=== PATIENT | female | born 1960 | race Caucasian/White ===

== ENCOUNTER → 2017-04-21 | Outpatient (CLI) | payer SELFPAY ==
[~2017-04-21] MED LIST: ALBU3IS INH; ALBU90OI61 INH; AMOX500 PO; AZIT250 PO; AZIT500 PO; Advair Hfa 230-12 GM INH; Aspirin EC81 MG PO; DOXY100 PO; FLUSAL2505 INH; FURO20 PO; Flomax0.4 MG PO; GUAI600T33 PO; GUAIFENESIN1200 MG PO; HYDCHL25 PO; IBUP600; IBUP600 PO; IBUP800 PO; KETO10 PO; LEVSOD100 PO; LEVSOD150 PO; METFORMIN HCL1000 MG PO; PAIN MEDS; POTA10T PO; POTCHL10ER PO; PRED20 PO; TRAM50 PO; Zofran Odt4 MG PO; [UNRECOGNIZED DRUG - REMARK]
[2017-04-21 12:20] LABS: BASOPHILS ABSOLUTE AUTO 0.08 K/mm3 (0.00-0.23); BASOPHILS PERCENT AUTO 1 % (0-2); EOSINOPHILS ABSOLUTE AUTO 0.08 K/mm3 (0.00-0.68); EOSINOPHILS PERCENT AUTO 1 % (0-6); Hematocrit 47.6 % (33.0-51.0); Hemoglobin 15.4 g/dL (11.5-16.0); IMMATURE GRAN ABSOLUTE AUTO 0.04 K/mm3 (0.00-0.10); IMMATURE GRAN PERCENT AUTO 0 % (0-1); LYMPHOCYTES ABSOLUTE AUTO 0.93 K/mm3 (0.84-5.20); LYMPHOCYTES PERCENT AUTO 8 % (21-46); MONOCYTES ABSOLUTE AUTO 0.83 K/mm3 (0.16-1.47); MONOCYTES PERCENT AUTO 7 % (4-13); Mean Corpuscular HGB Conc 32.4 g/dL (31.5-36.5); Mean Corpuscular Volume 102 fL (80-100); Mean Platelet Volume 10.8 fL (9.1-12.4); NEUTROPHILS ABSOLUTE AUTO 9.72 K/mm3 (1.96-9.15); NEUTROPHILS PERCENT AUTO 83 % (41-73); Platelet Count 173 K/mm3 (150-400); RDW Coefficient Variation 14.4 % (11.7-14.2); RDW Standard Deviation 53.9 fL (35.1-46.3); Red Blood Cell Count 4.67 M/mm3 (3.80-5.20); White Blood Cell Count 11.68 K/mm3 (4.00-11.30)
[2017-04-21 12:23] LABS: Anion Gap 6 mmol/L (6-16); Blood Urea Nitrogen 10 mg/dL (8-24); Bun/Creatinine Ratio 12.5 (12.0-20.0); CO2, Blood 34 mmol/L (21-32); Calcium, Blood 8.9 mg/dL (8.5-10.1); Chloride, Blood 106 mmol/L (98-108); Glomerular Filtration Rate >60 (60-); Glucose, Blood 135 mg/dL (70-99); Potassium, Blood 3.5 mmol/L (3.5-5.5); Sodium, Blood 146 mmol/L (136-145)
== END | disposition home or self-care (01) ==
LOC: LAB EV 12:09
PROVIDERS: Physician Assistant Surgical
DX: R05 Cough (principal)
CPT/HCPCS: 80048; 83880; 85025

== ENCOUNTER 2017-08-31 12:14 | Emergency (ER) | payer OTHER ==
[~2017-08-31] VITALS: Ht 167.6 cm; Wt 115.2 kg
[~2017-08-31 12:14] MED LIST changes: -Advair Hfa 230-12 GM INH; -Flomax0.4 MG PO; -IBUP600; -IBUP600 PO; -KETO10 PO; -LEVSOD100 PO; -POTCHL10ER PO; -TRAM50 PO; -Zofran Odt4 MG PO
[2017-08-31] MEDS ORDERED: IBUP600 (14:08)
[2017-08-31] MEDS ORDERED: POTCHL10ER PO (14:09)
[2017-08-31] MEDS ORDERED: FURO20 PO (14:09)
[2017-08-31] MEDS ORDERED: Advair Hfa 230-12 GM INH (14:09)
[2017-08-31] MEDS ORDERED: LEVSOD100 PO (14:10)
[2017-08-31 15:29] LABS: BASOPHILS ABSOLUTE AUTO 0.06 K/mm3 (0.00-0.23); BASOPHILS PERCENT AUTO 1 % (0-2); EOSINOPHILS ABSOLUTE AUTO 0.07 K/mm3 (0.00-0.68); EOSINOPHILS PERCENT AUTO 1 % (0-6); Hematocrit 47.4 % (33.0-51.0); Hemoglobin 14.9 g/dL (11.5-16.0); IMMATURE GRAN ABSOLUTE AUTO 0.05 K/mm3 (0.00-0.10); IMMATURE GRAN PERCENT AUTO 0 % (0-1); LYMPHOCYTES ABSOLUTE AUTO 2.12 K/mm3 (0.84-5.20); LYMPHOCYTES PERCENT AUTO 16 % (21-46); MONOCYTES ABSOLUTE AUTO 1.29 K/mm3 (0.16-1.47); MONOCYTES PERCENT AUTO 10 % (4-13); Mean Corpuscular HGB Conc 31.4 g/dL (31.5-36.5); Mean Corpuscular Volume 102 fL (80-100); Mean Platelet Volume 10.4 fL (9.1-12.4); NEUTROPHILS ABSOLUTE AUTO 9.52 K/mm3 (1.96-9.15); NEUTROPHILS PERCENT AUTO 73 % (41-73); Platelet Count 214 K/mm3 (150-400); RDW Coefficient Variation 14.6 % (11.7-14.2); RDW Standard Deviation 54.6 fL (35.1-46.3); Red Blood Cell Count 4.65 M/mm3 (3.80-5.20); White Blood Cell Count 13.11 K/mm3 (4.00-11.30)
[2017-08-31 15:34] LABS: Source, Urine Clean Catch
[2017-08-31 15:36] LABS: Bilirubin, Urine Neg (Neg); Blood, Urine 5+ (Neg); Glucose Qualitative, Urine Neg (Neg); Ketones, Urine Neg (Neg); Leukocyte Esterase, Urine Neg (Neg); Nitrite, Urine Neg (Neg); Protein, Urine Neg (Neg); Urobilinogen, Urine NORM (Normal)
[2017-08-31 15:46] LABS: Color, Urine Yellow (P-Yellow)
[2017-08-31 15:47] LABS: Appearance, Urine Clear (Clear); Bacteria Few /hpf; Red Blood Cells, Urine TNTC /hpf (0-2); Squamous Epithelial Cells Few /hpf (Few); White Blood Cells, Urine 0-2 /hpf (0-5)
[2017-08-31 15:51] LABS: Alanine Aminotransfer (ALT/SGP 18 U/L (12-78); Albumin, Blood 3.7 g/dL (3.4-5.0); Albumin/Globulin Ratio 0.9 (0.8-1.8); Alk Phos 75 U/L (50-136); Anion Gap 7 mmol/L (6-16); Aspartate Aminotrans (AST/SGOT 20 U/L (12-37); Bilirubin, Total 0.5 mg/dL (0.1-1.0); Blood Urea Nitrogen 10 mg/dL (8-24); Bun/Creatinine Ratio 10.6 (12.0-20.0); CO2, Blood 32 mmol/L (21-32); Calcium, Blood 8.8 mg/dL (8.5-10.1); Chloride, Blood 102 mmol/L (98-108); Creatinine, Blood 0.94 mg/dL (0.40-1.00); Globulin, Blood 4.2 g/dL (2.2-4.0); Glomerular Filtration Rate >60 (60-); Glucose, Blood 88 mg/dL (70-99); Sodium, Blood 141 mmol/L (136-145); Total Protein, Blood 7.9 g/dL (6.4-8.2)
[2017-08-31] MEDS ORDERED: Zofran Odt4 MG PO (16:12)
[2017-08-31] MEDS ORDERED: TRAM50 PO (16:12)
[2017-08-31] MEDS ORDERED: Flomax0.4 MG PO (16:12)
[2017-08-31] MEDS ORDERED: KETO10 PO (16:12)
== END 2017-08-31 16:35 | disposition home or self-care (01) ==
LOC: ER 12:14
PROVIDERS: Emergency Medicine; Physician Assistant
DX: N13.2 Hydronephrosis with renal and ureteral calculous obstruction (principal); Z88.5 Allergy status to narcotic agent; Z88.8 Allergy status to other drugs, medicaments and biological substances; Z79.899 Other long term (current) drug therapy; F17.200 Nicotine dependence, unspecified, uncomplicated
CPT/HCPCS: 36415; 51798; 74176; 80053; 81001; 83690; 85025; 96361; 96374; 99284; J2405; J7030

== ENCOUNTER 2017-08-31 18:31 | Inpatient (IN) | payer OTHER ==
[~2017-08-31] VITALS: Ht 167.6 cm; Wt 124.3 kg
[~2017-08-31 18:31] MED LIST changes: +Advair Hfa 230-12 GM INH; +Flomax0.4 MG PO; +IBUP600; +KETO10 PO; +LEVSOD100 PO; +POTCHL10ER PO; +TRAM50 PO; +Zofran Odt4 MG PO
[2017-08-31 19:54] LABS: BASOPHILS ABSOLUTE AUTO 0.05 K/mm3 (0.00-0.23); BASOPHILS PERCENT AUTO 1 % (0-2); EOSINOPHILS ABSOLUTE AUTO 0.05 K/mm3 (0.00-0.68); EOSINOPHILS PERCENT AUTO 1 % (0-6); Hematocrit 47.1 % (33.0-51.0); Hemoglobin 14.7 g/dL (11.5-16.0); IMMATURE GRAN ABSOLUTE AUTO 0.04 K/mm3 (0.00-0.10); IMMATURE GRAN PERCENT AUTO 0 % (0-1); LYMPHOCYTES ABSOLUTE AUTO 1.79 K/mm3 (0.84-5.20); LYMPHOCYTES PERCENT AUTO 16 % (21-46); MONOCYTES ABSOLUTE AUTO 1.11 K/mm3 (0.16-1.47); MONOCYTES PERCENT AUTO 10 % (4-13); Mean Corpuscular HGB Conc 31.2 g/dL (31.5-36.5); Mean Corpuscular Volume 103 fL (80-100); Mean Platelet Volume 10.5 fL (9.1-12.4); NEUTROPHILS ABSOLUTE AUTO 7.86 K/mm3 (1.96-9.15); NEUTROPHILS PERCENT AUTO 72 % (41-73); Platelet Count 206 K/mm3 (150-400); RDW Coefficient Variation 14.6 % (11.7-14.2); RDW Standard Deviation 55.9 fL (35.1-46.3); Red Blood Cell Count 4.59 M/mm3 (3.80-5.20)
[2017-08-31 20:16] LABS: Alanine Aminotransfer (ALT/SGP 17 U/L (12-78); Albumin, Blood 3.7 g/dL (3.4-5.0); Alk Phos 76 U/L (50-136); Anion Gap 7 mmol/L (6-16); Aspartate Aminotrans (AST/SGOT 22 U/L (12-37); Bilirubin, Total 0.4 mg/dL (0.1-1.0); Blood Urea Nitrogen 9 mg/dL (8-24); CO2, Blood 31 mmol/L (21-32); Calcium, Blood 8.3 mg/dL (8.5-10.1); Chloride, Blood 103 mmol/L (98-108); Globulin, Blood 3.8 g/dL (2.2-4.0); Glomerular Filtration Rate >60 (60-); Glucose, Blood 105 mg/dL (70-99); Sodium, Blood 141 mmol/L (136-145); Total Protein, Blood 7.5 g/dL (6.4-8.2); Troponin I <0.015 ng/mL (0.000-0.040)
[2017-08-31 22:39] LABS: Free Thyroxine 0.21 ng/dL (0.70-1.60)
[2017-08-31 22:41] LABS: Triiodothyronine, Free 0.75 pg/mL (2.18-3.98)
[2017-09-01 04:26] LABS: Hematocrit 46.4 % (33.0-51.0); Hemoglobin 14.2 g/dL (11.5-16.0); Mean Corpuscular HGB 32.1 pg (26.0-34.0); Mean Corpuscular HGB Conc 30.6 g/dL (31.5-36.5); Mean Corpuscular Volume 105 fL (80-100); Mean Platelet Volume 10.5 fL (9.1-12.4); Platelet Count 208 K/mm3 (150-400); RDW Coefficient Variation 14.7 % (11.7-14.2); RDW Standard Deviation 57.7 fL (35.1-46.3); Red Blood Cell Count 4.43 M/mm3 (3.80-5.20); White Blood Cell Count 10.28 K/mm3 (4.00-11.30)
[2017-09-01 04:41] LABS: International Normalized Ratio 1.04; Prothrombin Time Results 10.8 Sec (9.7-11.5)
[2017-09-01 04:43] LABS: Bun/Creatinine Ratio 9.2 (12.0-20.0); Calcium, Blood 8.5 mg/dL (8.5-10.1); Creatinine, Blood 1.3 mg/dL (0.40-1.00); Potassium, Blood 3.9 mmol/L (3.5-5.5)
[2017-09-02 07:13] LABS: COMPLEMENT C3, SERUM 170 mg/dL (82-167); COMPLEMENT C4, SERUM 21 mg/dL (14-44)
[2017-09-03 05:15] LABS: BASOPHILS ABSOLUTE AUTO 0.04 K/mm3 (0.00-0.23); BASOPHILS PERCENT AUTO 0 % (0-2); EOSINOPHILS ABSOLUTE AUTO 0.11 K/mm3 (0.00-0.68); EOSINOPHILS PERCENT AUTO 1 % (0-6); Hematocrit 42.4 % (33.0-51.0); Hemoglobin 12.7 g/dL (11.5-16.0); IMMATURE GRAN ABSOLUTE AUTO 0.03 K/mm3 (0.00-0.10); IMMATURE GRAN PERCENT AUTO 0 % (0-1); LYMPHOCYTES PERCENT AUTO 18 % (21-46); MONOCYTES PERCENT AUTO 11 % (4-13); Mean Corpuscular HGB 31.9 pg (26.0-34.0); Mean Corpuscular Volume 107 fL (80-100); Mean Platelet Volume 10.8 fL (9.1-12.4); NEUTROPHILS ABSOLUTE AUTO 6.32 K/mm3 (1.96-9.15); NEUTROPHILS PERCENT AUTO 70 % (41-73); Platelet Count 169 K/mm3 (150-400); RDW Coefficient Variation 14.7 % (11.7-14.2); RDW Standard Deviation 58.5 fL (35.1-46.3); Red Blood Cell Count 3.98 M/mm3 (3.80-5.20)
[2017-09-03 05:29] LABS: Calcium, Blood 9.1 mg/dL (8.5-10.1); Creatinine, Blood 1.44 mg/dL (0.40-1.00); Potassium, Blood 4.3 mmol/L (3.5-5.5)
[2017-09-03 18:07] LABS: RNP ANTIBODIES <0.2 AI (0.0-0.9); SJOGREN'S ANTI-SS-A <0.2 AI (0.0-0.9); SJOGREN'S ANTI-SS-B <0.2 AI (0.0-0.9); SMITH ANTIBODIES <0.2 AI (0.0-0.9)
[2017-09-03 19:07] LABS: ANTI-DSDNA ANTIBODIES 5 IU/mL (0-9)
[2017-09-04 05:12] LABS: Bun/Creatinine Ratio 16.4 (12.0-20.0); Calcium, Blood 9.2 mg/dL (8.5-10.1); Creatinine, Blood 1.46 mg/dL (0.40-1.00); Potassium, Blood 4.3 mmol/L (3.5-5.5)
[2017-09-05 05:43] LABS: Calcium, Blood 9.7 mg/dL (8.5-10.1); Creatinine, Blood 1.09 mg/dL (0.40-1.00); Potassium, Blood 4.4 mmol/L (3.5-5.5)
== END 2017-09-05 13:38 | disposition home or self-care (01) | DRG 315 ==
LOC: ER 18:31 → PCU 18:32 → MEDS 21:01 → PCU 21:12 → MEDS 22:46 → ENPENDDIS 09-05 10:00 → MEDS 09-05 13:38
PROVIDERS: Emergency Medicine; Internal Medicine; Nurse Practitioner Acute Care; Physician Assistant
DX: I31.3 Pericardial effusion (noninflammatory) (principal); N17.9 Acute kidney failure, unspecified; J96.11 Chronic respiratory failure with hypoxia; J44.9 Chronic obstructive pulmonary disease, unspecified; N20.0 Calculus of kidney
CPT/HCPCS: 36415; 51798; 71046; 74176; 80048; 80053; 81001; 83690; 83880; 84439; 84443; 84481; 84484; 85025; 85027; 85610; 85651; 85730; 86038; 86160; 86225; 86235; 93005; 93010; 93306; 93971; 94640; 94760; 96361; 96374; 99284; 99285; J1650; J2405; J7030

== ENCOUNTER 2017-12-07 18:57 | Emergency (ER) | payer SELFPAY ==
[~2017-12-07] VITALS: Ht 167.6 cm; Wt 113.4 kg
[2017-12-07] MEDS ORDERED: IBUP600 PO (20:00)
== END 2017-12-07 20:07 | disposition home or self-care (01) ==
LOC: ER 18:57
DX: S00.31XA Abrasion of nose, initial encounter (principal); M25.562 Pain in left knee; Z88.5 Allergy status to narcotic agent; Z88.8 Allergy status to other drugs, medicaments and biological substances; Z79.899 Other long term (current) drug therapy; Z79.891 Long term (current) use of opiate analgesic; F17.200 Nicotine dependence, unspecified, uncomplicated; W01.0XXA Fall on same level from slipping, tripping and stumbling without subsequent striking against object, initial encounter
CPT/HCPCS: 73562-LT; 99283-25

== ENCOUNTER 2018-04-04 20:59 | Observation (INO) | payer OTHER ==
[~2018-04-04] VITALS: Ht 167.6 cm; Wt 132.5 kg
[~2018-04-04 20:59] MED LIST changes: +FURO40 PO; +IBUP600 PO
[2018-04-04 21:42] LABS: BASOPHILS ABSOLUTE AUTO 0.04 K/mm3 (0.00-0.23); BASOPHILS PERCENT AUTO 1 % (0-2); EOSINOPHILS ABSOLUTE AUTO 0.06 K/mm3 (0.00-0.68); EOSINOPHILS PERCENT AUTO 1 % (0-6); Hematocrit 46.3 % (33.0-51.0); Hemoglobin 13.4 g/dL (11.5-16.0); IMMATURE GRAN ABSOLUTE AUTO 0.07 K/mm3 (0.00-0.10); IMMATURE GRAN PERCENT AUTO 1 % (0-1); LYMPHOCYTES ABSOLUTE AUTO 2.29 K/mm3 (0.84-5.20); LYMPHOCYTES PERCENT AUTO 30 % (21-46); MONOCYTES ABSOLUTE AUTO 0.57 K/mm3 (0.16-1.47); MONOCYTES PERCENT AUTO 7 % (4-13); Mean Corpuscular HGB 32.4 pg (26.0-34.0); Mean Corpuscular HGB Conc 28.9 g/dL (31.5-36.5); Mean Corpuscular Volume 112 fL (80-100); Mean Platelet Volume 10.2 fL (9.1-12.4); NEUTROPHILS ABSOLUTE AUTO 4.73 K/mm3 (1.96-9.15); NEUTROPHILS PERCENT AUTO 61 % (41-73); Platelet Count 192 K/mm3 (150-400); RDW Coefficient Variation 14.3 % (11.7-14.2); RDW Standard Deviation 60.9 fL (35.1-46.3); Red Blood Cell Count 4.13 M/mm3 (3.80-5.20); White Blood Cell Count 7.76 K/mm3 (4.00-11.30)
[2018-04-04 21:46] LABS: Alanine Aminotransfer (ALT/SGP 28 U/L (12-78); Albumin, Blood 3.6 g/dL (3.4-5.0); Albumin/Globulin Ratio 0.8 (0.8-1.8); Alk Phos 72 U/L (50-136); Anion Gap 5 mmol/L (6-16); Aspartate Aminotrans (AST/SGOT 39 U/L (12-37); Bilirubin, Total 0.2 mg/dL (0.1-1.0); Blood Urea Nitrogen 11 mg/dL (8-24); Bun/Creatinine Ratio 12.6 (12.0-20.0); CO2, Blood 43 mmol/L (21-32); Calcium, Blood 9.2 mg/dL (8.5-10.1); Chloride, Blood 96 mmol/L (98-108); Creatinine, Blood 0.87 mg/dL (0.40-1.00); Globulin, Blood 4.4 g/dL (2.2-4.0); Glomerular Filtration Rate >60 (60-); Glucose, Blood 140 mg/dL (70-99); Potassium, Blood 3.8 mmol/L (3.5-5.5); Sodium, Blood 144 mmol/L (136-145); Troponin I <0.015 ng/mL (0.000-0.040)
[2018-04-04 23:21] LABS: Base Excess Venous 21.3 mmol/L; Bicarbonate Venous 40.9 mmol/L (24.0-30.0); PCO2 Venous 83.5 mmHg (38-42); PO2 Venous 50.7 mmHg (38-42); pH Blood Venous 7.36 (7.34-7.37)
[2018-04-06 06:44] LABS: Blood Urea Nitrogen 19 mg/dL (8-24); Bun/Creatinine Ratio 16.1 (12.0-20.0); Chloride, Blood 88 mmol/L (98-108); Creatinine, Blood 1.18 mg/dL (0.40-1.00); Glomerular Filtration Rate 50 (60-); Glucose, Blood 167 mg/dL (70-99); Potassium, Blood 3.6 mmol/L (3.5-5.5); Sodium, Blood 139 mmol/L (136-145)
[2018-04-06 06:48] LABS: Anion Gap Unable to Calculate mmol/L (6-16)
[2018-04-06 06:50] LABS: CO2, Blood >45 mmol/L (21-32)
== END 2018-04-06 11:12 | disposition home or self-care (01) ==
LOC: ER 20:59 → PCU 21:00 → ER 04-05 02:46 → PCU 04-05 02:46
PROVIDERS: Emergency Medicine; Hospitalist
DX: I31.3 Pericardial effusion (noninflammatory) (principal); J44.9 Chronic obstructive pulmonary disease, unspecified; E03.9 Hypothyroidism, unspecified; E11.9 Type 2 diabetes mellitus without complications; E66.01 Morbid (severe) obesity due to excess calories; F17.210 Nicotine dependence, cigarettes, uncomplicated; Z88.8 Allergy status to other drugs, medicaments and biological substances; Z79.899 Other long term (current) drug therapy; Z99.81 Dependence on supplemental oxygen; Z68.41 Body mass index [BMI] 40.0-44.9, adult; Z23 Encounter for immunization
CPT/HCPCS: 36415; 71045; 71260; 80048; 80053; 82803; 83880; 84443; 84484; 85025; 90686; 93005; 93010; 93308; 93321; 94640; 94760; 96374; 99285-25; J1200; J1940; Q9967

== ENCOUNTER 2019-04-20 20:26 | Inpatient (IN) | payer OTHER ==
[~2019-04-20] VITALS: Ht 167.6 cm; Wt 127.0 kg
[~2019-04-20 20:26] MED LIST changes: -FURO40 PO; -LEVSOD100 PO; -POTCHL10ER PO
[2019-04-20 20:51] LABS: pH Blood Arterial 7.33 (7.35-7.45)
[2019-04-20 20:52] LABS: PCO2 Arterial 87.8 mmHg (35-45); PO2 Arterial 48.7 mmHg (80-100)
[2019-04-20 20:53] LABS: BASOPHILS ABSOLUTE AUTO 0.02 K/mm3 (0.00-0.23); BASOPHILS PERCENT AUTO 0 % (0-2); EOSINOPHILS ABSOLUTE AUTO 0.06 K/mm3 (0.00-0.68); EOSINOPHILS PERCENT AUTO 1 % (0-6); Hematocrit 46.7 % (33.0-51.0); Hemoglobin 13.3 g/dL (11.5-16.0); IMMATURE GRAN ABSOLUTE AUTO 0.04 K/mm3 (0.00-0.10); IMMATURE GRAN PERCENT AUTO 1 % (0-1); LYMPHOCYTES ABSOLUTE AUTO 1.61 K/mm3 (0.84-5.20); LYMPHOCYTES PERCENT AUTO 19 % (21-46); MONOCYTES ABSOLUTE AUTO 0.61 K/mm3 (0.16-1.47); MONOCYTES PERCENT AUTO 7 % (4-13); Mean Corpuscular HGB 31.4 pg (26.0-34.0); Mean Corpuscular HGB Conc 28.5 g/dL (31.5-36.5); Mean Corpuscular Volume 110 fL (80-100); Mean Platelet Volume 9.9 fL (9.1-12.4); NEUTROPHILS ABSOLUTE AUTO 6.33 K/mm3 (1.96-9.15); NEUTROPHILS PERCENT AUTO 73 % (41-73); Platelet Count 177 K/mm3 (150-400); RDW Coefficient Variation 13.5 % (11.7-14.2); RDW Standard Deviation 55.8 fL (35.1-46.3); Red Blood Cell Count 4.24 M/mm3 (3.80-5.20); White Blood Cell Count 8.67 K/mm3 (4.00-11.30)
[2019-04-20 21:17] LABS: Alanine Aminotransfer (ALT/SGP 33 U/L (12-78); Albumin, Blood 3.9 g/dL (3.4-5.0); Albumin/Globulin Ratio 0.9 (0.8-1.8); Alk Phos 84 U/L (50-136); Anion Gap 3 mmol/L (6-16); Aspartate Aminotrans (AST/SGOT 44 U/L (12-37); Bilirubin, Total 0.3 mg/dL (0.1-1.0); Blood Urea Nitrogen 6 mg/dL (8-24); Bun/Creatinine Ratio 6.8 (12.0-20.0); CO2, Blood 43 mmol/L (21-32); Calcium, Blood 9.3 mg/dL (8.5-10.1); Chloride, Blood 93 mmol/L (98-108); Creatinine, Blood 0.88 mg/dL (0.40-1.00); Free Thyroxine 0.19 ng/dL (0.70-1.60); Globulin, Blood 4.3 g/dL (2.2-4.0); Glomerular Filtration Rate >60 (60-); Glucose, Blood 165 mg/dL (70-99); Magnesium, Blood 2.3 mg/dL (1.6-2.4); Sodium, Blood 139 mmol/L (136-145); Total Protein, Blood 8.2 g/dL (6.4-8.2); Troponin I <0.015 ng/mL (0.000-0.040)
[2019-04-20 21:22] LABS: Triiodothyronine, Free <0.50 pg/mL (2.18-3.98)
[2019-04-20 21:36] LABS: Source, Urine Catheter
[2019-04-20 21:38] LABS: Bilirubin, Urine Neg (Neg); Blood, Urine 2+ (Neg); Glucose Qualitative, Urine Neg (Neg); Ketones, Urine Neg (Neg); Leukocyte Esterase, Urine 1+ (Neg); Nitrite, Urine Neg (Neg); Protein, Urine 2+ (Neg); Urobilinogen, Urine NORM (Normal)
[2019-04-20 21:43] LABS: Appearance, Urine Hazy (Clear); Color, Urine Yellow (P-Yellow)
[2019-04-20 21:44] LABS: Amorphous Light (0-Heavy); Bacteria Mod /hpf; Squamous Epithelial Cells Mod /hpf (Few); Trichomonas Few /hpf; White Blood Cells, Urine 25-50 /hpf (0-5)
[2019-04-20] MEDS ORDERED: Synthroid300 MCG PO (21:44)
[2019-04-20] MEDS ORDERED: FURO40 PO (21:45)
[2019-04-20] MEDS ORDERED: POTCHL10ER PO (21:45)
[2019-04-20] MEDS ORDERED: BUPROPION XL150 M1 PO (21:46)
[2019-04-20] MEDS ORDERED: ALBU90OI INH (22:17)
[2019-04-20] MEDS ORDERED: Albuterol S5 MG/1 ML NEB (22:19)
--- NOTE | 2019-04-21 02:29 | NUR ---
PT ARRIVED VIA STRETCHER FROM ER; SLIDER SHEET USED TO TRANSFER PT TO BED; PT A&O; FLAT AFFECT; ANSWERS APPROPRIATELY; JOHNSON IN PLACE DRAINING CLEAR YELLOW; O2 SATS >93 ON 6L OXYMIZER; LUNG SOUNDS EXPIRATORY WHEEZES IN BASES; PT DENIES CHEST PAIN; NSR W/ HR 70'S; PT STATED SHE WAS HUNGRY AND HALF SANDWICH WAS BROUGHT TO PT; DENIES FURTHER NEEDS; CALL LIGHT IN REACH; BED IN LOWEST POSITION.
[2019-04-21 04:42] LABS: Blood Urea Nitrogen 8 mg/dL (8-24); Bun/Creatinine Ratio 8.2 (12.0-20.0); Calcium, Blood 9.3 mg/dL (8.5-10.1); Chloride, Blood 90 mmol/L (98-108); Creatinine, Blood 0.98 mg/dL (0.40-1.00); Glomerular Filtration Rate >60 (60-); Glucose, Blood 220 mg/dL (70-99); Potassium, Blood 3.9 mmol/L (3.5-5.5); Sodium, Blood 137 mmol/L (136-145)
[2019-04-21 04:59] LABS: Anion Gap 3 mmol/L (6-16); CO2, Blood 44 mmol/L (21-32)
--- NOTE | 2019-04-21 05:59 | NUR ---
SHIFT SUMMARY PT SLEEPING IN BED; NO GRIMACE NOTED; VSS; PT ON RA; JOHNSON DRAINING CLEAR YELLOW URINE; CALL LIGHT IN REACH; BED IN LOWEST POSITION; WILL CONTINUE TO MONITOR CLOSELY UNTIL HAND OFF TO DAY SHIFT RN.
[2019-04-21 08:59] LABS: PO2 Arterial 55.5 mmHg (80-100); pH Blood Arterial 7.34 (7.35-7.45)
[2019-04-21 09:00] LABS: PCO2 Arterial 86.1 mmHg (35-45)
--- NOTE | 2019-04-21 10:10 | NUR ---
TRANSFER TO ICU Assumed care of pt upon arrival to ICU 3 from PCU 4 at 0948. Pt transferred to ICU due to increased O2 requirements. Bedside report recieved from FOURDRINIER MACHINE OPERATOR, Martha. Pt remained in same bed during transfer. Pt arrived wearing 15 LPM via nonrebreather. Pt alert and oriented x 4. Speaking in 4-5 word sentences. RR 20-24. No acute distress noted, but pt states "I feel like I can't get enough air". Pt promptly placed on AirVO, at 60 LPM and 95% FiO2. Plan of care discussed with pt, who adamantly states dislike for BiPAP. Dr Lan in to see pt. Plan for precedex drip and then BiPAP placement. Pt agreeable with plan of care. Pt was asked who she would like to make decisions for her if she cannot speak for herself, she stated "My daughter Marina". Pt arrived with one peripheral IV. When this RN assessed right arm to place second peripheral IV, pt states "Not my right arm. That's the side I eat with". This RN educated pt on current illness and liklihood that pt would not be eating today. Pt verbalized understaning.
--- NOTE | 2019-04-21 10:45 | NUR ---
PT ON BIPAP / INITIAL ASSESSMENT Pt placed on BiPAP after precedex started. Pt awake. Provided feedback on BiPAP mask fitting, stating "It's squishing my nose" and pointing to areas where she felt a leak. Mask adjusted to pt satisfaction, until pt stated she was comfortable. SpO2 90% or greater for approximately two minutes after BiPAP mask placed and then lowered to high 70s- low 80s. RR 20-24. Respirations even and unlabored. Pt does not appear in distress and is able to talk to staff with ease. RT in room at this time, adjusting BiPAP settings. Will continue to closely reassess.
--- NOTE | 2019-04-21 11:30 | NUR ---
INTUABTION After approx 20 minutes on BiPAP, FiO2 100%, and IPAP/EPAP titrated by RT, pt SpO2 remained between 79-81%. Dr Lan aware. Plan for intubation. Prior to intubation, pt woken up by this RN and educated on plan of care. Pt nodded head in understanding. 1113 - 50 mg propofol given 1115 - Pt intubated with 8.0 cm ETT, 25 cm MAYCOL 1116 - 50 mg propofol given 1116 - Propofol infusion started at 40 mcg/kg/min, per provider orders. Pt agitated, attempting to reach for ETT. 1117 - NS Bolus started due to hypotension. Pt reamins agitated. 1121 - Precedex on standby. Propofol decreased to 30 mcg/kg/min. Pt pulling on restraints. Plan for central line placement. 1129 - Additional 500 mL bolus of NS to be given. At this time, pt on PC 30/03 Rate 25 FiO2 100%. SpO2 80s. Dr Lan aware.
--- NOTE | 2019-04-21 12:05 | NUR ---
UPDATE Central line placed to right femoral vein by Dr Lan. SpO2 remains in 80s. Plan for chest CT to r/o PE. This RN attempted to call pt's daughter, Fatoumata, to update on pt condition. Unable to reach Fatoumata, plan to reattempt later. At this time, pt BP stable.
[2019-04-21 12:07] LABS: PO2 Arterial 44.8 mmHg (80-100); pH Blood Arterial 7.37 (7.35-7.45)
--- NOTE | 2019-04-21 12:58 | NUR ---
ECHOCARDIOGRAM COMPLETE
--- NOTE | 2019-04-21 13:30 | NUR ---
RETURN FROM CT Pt back to room from CT. While in CT, pt had an epiode of tachycardia per monitor that alarmed as V-Tach. Event resolved without intervention and pt returned to sinus rhythm, rate 70s. Levophed 4 mcg/min, propofol 60 mcg/kg/min.
--- NOTE | 2019-04-21 13:45 | NUR ---
CALL PLACED TO DAUGHTER This RN placed call to pt's daughter Fatoumata Rangel [phone], to update on patient condition. Questions answered.
--- NOTE | 2019-04-21 14:03 | NUR ---
PLAN OF CARE DISCUSSED WITH DR DONAHUE Notified provider that pt has gone to CT and report is available. Also notified provider that pt had event on heart monitor while in CT that alarmed as V-Tach. Provider stated that this was likely artifact or electrical interference.
[2019-04-21 14:31] LABS: BASOPHILS ABSOLUTE AUTO 0.02 K/mm3 (0.00-0.23); BASOPHILS PERCENT AUTO 0 % (0-2); EOSINOPHILS PERCENT AUTO 0 % (0-6); Hematocrit 41.4 % (33.0-51.0); Hemoglobin 12.1 g/dL (11.5-16.0); IMMATURE GRAN ABSOLUTE AUTO 0.04 K/mm3 (0.00-0.10); IMMATURE GRAN PERCENT AUTO 0 % (0-1); LYMPHOCYTES ABSOLUTE AUTO 0.62 K/mm3 (0.84-5.20); LYMPHOCYTES PERCENT AUTO 6 % (21-46); MONOCYTES ABSOLUTE AUTO 0.18 K/mm3 (0.16-1.47); MONOCYTES PERCENT AUTO 2 % (4-13); Mean Corpuscular HGB 31.4 pg (26.0-34.0); Mean Corpuscular HGB Conc 29.2 g/dL (31.5-36.5); Mean Corpuscular Volume 108 fL (80-100); Mean Platelet Volume 10.1 fL (9.1-12.4); NEUTROPHILS ABSOLUTE AUTO 10.22 K/mm3 (1.96-9.15); NEUTROPHILS PERCENT AUTO 92 % (41-73); Platelet Count 209 K/mm3 (150-400); RDW Coefficient Variation 13.5 % (11.7-14.2); RDW Standard Deviation 53.8 fL (35.1-46.3); Red Blood Cell Count 3.85 M/mm3 (3.80-5.20); White Blood Cell Count 11.08 K/mm3 (4.00-11.30)
[2019-04-21 14:52] LABS: Bun/Creatinine Ratio 11.1 (12.0-20.0); Calcium, Blood 8.6 mg/dL (8.5-10.1); Creatinine, Blood 1.08 mg/dL (0.40-1.00); Phosphorus, Blood 2.4 mg/dL (2.5-4.9); Potassium, Blood 4.4 mmol/L (3.5-5.5)
--- NOTE | 2019-04-21 18:18 | NUR ---
SUMMARY At this time, pt is arousable to painful stimulus. Seadated with propofol at 60 mcg/kg/min. Unsuccessful at titrating propofol down due to agitation. Levophed at 5 mcg/min. Pt remains on ventilator via 8.0 cm ETT, 25 cm MAYCOL. Remains on pressure control 20/12. FiO2 90%. At this time, SpO2 is 95%. Lungs clear on ausculation, but dim in lower lobes. Pt has OG tube, clamped as cytomel was given this afternoon. Sinus rhythm per monitor, rate 68. Llanes catheter in place for strict measurement of fluid intake and output. Pt has not had any visitors since arrival to ICU. LR bolus infusing per Dr Lan due to elevated lactic acid.
[2019-04-22 03:26] LABS: BASOPHILS ABSOLUTE AUTO 0.01 K/mm3 (0.00-0.23); BASOPHILS PERCENT AUTO 0 % (0-2); EOSINOPHILS PERCENT AUTO 0 % (0-6); Hemoglobin 12.3 g/dL (11.5-16.0); IMMATURE GRAN ABSOLUTE AUTO 0.13 K/mm3 (0.00-0.10); IMMATURE GRAN PERCENT AUTO 1 % (0-1); LYMPHOCYTES ABSOLUTE AUTO 1.21 K/mm3 (0.84-5.20); LYMPHOCYTES PERCENT AUTO 11 % (21-46); MONOCYTES ABSOLUTE AUTO 0.76 K/mm3 (0.16-1.47); MONOCYTES PERCENT AUTO 7 % (4-13); Mean Corpuscular HGB 31.1 pg (26.0-34.0); Mean Corpuscular HGB Conc 30.8 g/dL (31.5-36.5); Mean Platelet Volume 10.5 fL (9.1-12.4); NEUTROPHILS ABSOLUTE AUTO 8.85 K/mm3 (1.96-9.15); NEUTROPHILS PERCENT AUTO 81 % (41-73); Platelet Count 225 K/mm3 (150-400); RDW Coefficient Variation 13.3 % (11.7-14.2); RDW Standard Deviation 50.3 fL (35.1-46.3); Red Blood Cell Count 3.95 M/mm3 (3.80-5.20); White Blood Cell Count 10.96 K/mm3 (4.00-11.30)
[2019-04-22 03:38] LABS: Mean Corpuscular Volume 101 fL (80-100)
[2019-04-22 03:48] LABS: Albumin, Blood 3.1 g/dL (3.4-5.0); Albumin/Globulin Ratio 0.8 (0.8-1.8); Bilirubin, Total 0.5 mg/dL (0.1-1.0); Bun/Creatinine Ratio 11.4 (12.0-20.0); Calcium, Blood 8.7 mg/dL (8.5-10.1); Creatinine, Blood 1.23 mg/dL (0.40-1.00); Globulin, Blood 3.9 g/dL (2.2-4.0); Magnesium, Blood 1.7 mg/dL (1.6-2.4); Potassium, Blood 3.6 mmol/L (3.5-5.5)
[2019-04-22 03:58] LABS: Phosphorus, Blood 0.8 mg/dL (2.5-4.9)
[2019-04-22 05:19] LABS: PCO2 Arterial 25.4 mmHg (35-45); PO2 Arterial 77.4 mmHg (80-100)
[2019-04-22 05:20] LABS: pH Blood Arterial 7.72 (7.35-7.45)
--- NOTE | 2019-04-22 06:38 | NUR ---
SHIFT SUMMARY PATIENT DID WELL THROUGH NIGHT. UPON RECEIVING MORNING ABG (pH=7.717) DECREASED RATE, PRESSURE SUPPORT ON VENTILATOR. TUBE TAMER WAS CHANGED OUT EARLY IN SHIFT BY RT. ATTEMPTED TO DECREASE SEDATION AROUND 03:00, PATIENT LOOKED PAINFUL, WINCING FACE, COUGHING ON VENTILATOR. INCREASED PROPOFOL BACK TO 60 MCG/KG/MIN, GAVE 50 MCG FENTANYL. THERE WAS MILD INCREASE IN HR & BP, BUT NO INCREASE IN TEMP (MAINTAINED @ 97.4), NO SWELLING, HIVES, ETC. NO BM. BATH COMPLETED. LEVOPHED OFF @ 03:00. VSS. WILL CONTINUE TO MONITOR.
--- NOTE | 2019-04-22 07:30 | NUR ---
BEGINNING OF SHIFT Assumed care of pt at 0700 from Jani LU. Pt on ventilator AC PC //55%. SpO2 99%. Lungs coarse t/o on auscultation, breath sounds not as diminished compared to this RNs assessment yesterday. No sputum aspirated from in-line suction. Pt initially on 60 mcg/kg/min propofol. Levophed off. Pt arousable to painful stimulus. Gag and cough reflexes present. Propofol reduced to 30 mcg/kg/min. After approx 15 minutes, pt awoke while this RN performing catheter care. This RN oriented pt, discussed plan of care and reminded pt that BiPAP was attempted yesterday but unsuccessful at appropriately oxygenating the patient. Pt nodded her head indicating "yes". Pt gripped this RNs fingers when asked to do so. Propofol returned to 60 mcg/kg/min.
--- NOTE | 2019-04-22 08:55 | NUR ---
DR DONAHUE IN TO SEE PT Discussed AM labs. Plan to recheck labs at noon. Provider changed ventilator to volume control AC 15/%. SpO2 97%.
[2019-04-22 12:02] LABS: PCO2 Arterial 46.1 mmHg (35-45); PO2 Arterial 67.1 mmHg (80-100); pH Blood Arterial 7.49 (7.35-7.45)
--- NOTE | 2019-04-22 12:44 | NUR ---
LABS This RN nandini labs from pt's central line at 1200. Results to be called to Dr Lan. This RN placed call to lab to inquire about results as they are not yet available. Gi Tech, Leslie, states specimen has not yet been run, results will soon be available.
[2019-04-22 12:46] LABS: Potassium, Blood 3.3 mmol/L (3.5-5.5)
--- NOTE | 2019-04-22 13:12 | NUR ---
ENDOCRINOLOGY CONSULTATION New orders entered by Dr Dalal. press operator heavy duty placed call to hospitalist, Dr Cannon to inquire if Dr Dalal has been consulted- provider states Dr Dalal has been consulted for endocrinology. This RN placed call to Dr Dalal to notify that pt has already received 100 mcg of levothyroxine today. Inquired if he would like for patient to receive the 200 mcg that is ordered. New orders provided.
--- NOTE | 2019-04-22 16:00 | NUR ---
DR MORRIS IN TO SEE PT Plan of care discussed. No new orders at this time.
--- NOTE | 2019-04-22 16:45 | NUR ---
SUMMARY At this time, pt is laying in bed, sedated. Propofol at 60 mcg/kg/min. Pt did not require any ativan for fentanyl for agitation. Gag and cough present. Pt grimaces with painful stimulus. Pt attempts to reach for ETT when hands not restrained. VSS. Remains on mechanical ventilator via 8.0 cm ETT, 25 cm MAYCOL. AC/VC 12/400/10/35% FiO2. SpO2 95%. Sinus rhythm per monitor. No events per heart monitor this shift. Pt receiving enteral nutrition through OG tube, Vital HP at 20 mL per hour with 30 mL water flush Q4H. Llanes catheter patent and draining clear yellow urine. Pt did not have BM this shift. Pt has not had any visitors this shift, nor has any family called for an update from this RN. Will continue to closely monitor until care handoff and bedside report with oncoming RN.
--- NOTE | 2019-04-22 19:00 | NUR ---
ASSUMED CARE NOTE: ASSUMED CARE OF PT AT 1900, RECEVIED REPORT FROM EMILIA LU. PT TOLERATING VENT WITH SETTINGS AT AC/VC 12/400/10 35%, SPO2 BETWEEN 90-94 %. NO SECRETIONS NOTED WITH INLINE SUCTION. GAG AND COUGH REFLEX PRESENT. ETT IN CORRECT PLACEMENT. PT SEDATED WITH 60MCG/KG/MIN OF PROPOFOL. CENTERAL LINE PATENT AND DRESSING INTACT. PT EYES CRUSTED OVER, WARM WET WASH CLOTH PLACED OVER. PT AFEBRILE. LUNG SOUNDS COARSE T/O. PT IN NSR WITH HR BETWEEN 70-80 BMP. JOHNSON PATENT AND DRAINING YELLOW CLEAR URINE. WILL CONTINUE TO MONITOR PT T/O SHIFT.
--- NOTE | 2019-04-22 23:50 | NUR ---
SEDATION VACATION: PROPOFOL TURNED DOWN GRADUALLY. AT 35MCG/KG/MIN OF PROFOFOL PT ABLE TO RESPOND TO VERBAL STIMULI. PT ABLE TO OPEN EYES AND FOLLOW COMMANDS SUCH MAKE A FIST , WIGGLE TOES, NOD HEAD. PT MOVED HEAD FROM SIDE TO SIDE INDICATING SHE WAS IN NO PAIN. PT REPOSITIONED. PROPOFOL @ 45MCG/KG/MIN.
[2019-04-23 03:46] LABS: BASOPHILS ABSOLUTE AUTO 0.01 K/mm3 (0.00-0.23); BASOPHILS PERCENT AUTO 0 % (0-2); EOSINOPHILS PERCENT AUTO 0 % (0-6); IMMATURE GRAN PERCENT AUTO 2 % (0-1); LYMPHOCYTES ABSOLUTE AUTO 0.98 K/mm3 (0.84-5.20); LYMPHOCYTES PERCENT AUTO 8 % (21-46); MONOCYTES ABSOLUTE AUTO 0.85 K/mm3 (0.16-1.47); MONOCYTES PERCENT AUTO 7 % (4-13); Mean Corpuscular HGB 31.3 pg (26.0-34.0); Mean Corpuscular HGB Conc 31.4 g/dL (31.5-36.5); Mean Corpuscular Volume 99 fL (80-100); Mean Platelet Volume 10.5 fL (9.1-12.4); NEUTROPHILS ABSOLUTE AUTO 10.14 K/mm3 (1.96-9.15); NEUTROPHILS PERCENT AUTO 83 % (41-73); Platelet Count 207 K/mm3 (150-400); RDW Coefficient Variation 14.6 % (11.7-14.2); Red Blood Cell Count 3.52 M/mm3 (3.80-5.20); White Blood Cell Count 12.18 K/mm3 (4.00-11.30)
[2019-04-23 04:09] LABS: Bun/Creatinine Ratio 17.6 (12.0-20.0); Creatinine, Blood 1.19 mg/dL (0.40-1.00); Free Thyroxine 0.64 ng/dL (0.70-1.60); Magnesium, Blood 2.2 mg/dL (1.6-2.4); Phosphorus, Blood 3.9 mg/dL (2.5-4.9); Potassium, Blood 3.5 mmol/L (3.5-5.5)
[2019-04-23 04:13] LABS: Triiodothyronine, Free 1.19 pg/mL (2.18-3.98)
[2019-04-23 05:21] LABS: PCO2 Arterial 45.1 mmHg (35-45); PO2 Arterial 59.3 mmHg (80-100)
--- NOTE | 2019-04-23 05:47 | NUR ---
SHIFT SUMMARY: PT REMAINS ON VENT WITH SETTINGS @ AC/VC 12/400/10/35% WITH SPO2 BETWEEN 92-94%. PROPOFOL WAS TITRATED DOWN TO 35MCG/KG/MIN, TUBING CHANGED.PRN FENTYNAL WAS GIVEN PER EMAR TO AID IN VENT COMPLIANCE. PT IS ABLE TO RESPOND TO PAINFUL AND VERBAL STIMULI. TUBE FEEDING RUNNING AT GOAL OF 20MLS/HR, LAST RESIDUAL 80MLS. JOHNSON CATH PATNET AND DRAINING CLEAR YELLOW URINE. PT REPOSITIONED Q2H, PT GIVEN BEDBATH THIS SHIFT. VSS. SINUS RHYTHYM WITH HR @ [address] WILL CONTINUE TO MONITOR UNTIL REPORT IS GIVEN TO ONCOMING SHIFT.
--- NOTE | 2019-04-23 08:25 | NUR ---
ASSUMED CARE / DR GONZALEZ: REPORT RECEIVED FROM ELLIOT Medeiros RN. ASSUMED CARE OF PT AT APPROX 0700. ON ASSESSMENT, THE PT AWAKES EASILY & IS FOLLOWING COMMANDS W/O DIFFICULTY. SHE IS CALM & COOPERATIVE, NODS "YES" WHEN ASKED OF HAVING PAIN, PRN MEDS PER EMAR. VENT SETTINGS: AC/VC 12/400/10/35%, PT TOLERATING WELL W/ O2 SATS > 92%. LS DIM W/ WHEEZING T/O. MONITOR SHOWS SR W/ HR 70s, BP STABLE. BT x4, JOHNSON PATENT/ DRAINING. SKIN OVERALL INTACT, DRY & FRAGILE. PROVIDER AT BEDSIDE TO EVAL PT. NO CHANGES AT THIS TIME. WILL CONTINUE TO MONITOR
--- NOTE | 2019-04-23 09:30 | NUR ---
DR MOYER: PROVIDER AT BEDSIDE TO EVAL PT. CHANGES TO MED REGIMEN HAVE BEEN MADE. PEEP DECREASED FROM 10 TO 8, ULTIMATE GOAL OF 5 BY END OF DAY IF PT TOLERATES. WILL CONTINUE TO MONITOR & UPDATE NEEDED.
--- NOTE | 2019-04-23 15:01 | NUR ---
TUBE FEEDINGS: RATE INCREASED TO 35 ML/HR PER DIETARY ORDERS.
--- NOTE | 2019-04-23 17:43 | NUR ---
SHIFT SUMMARY: NO ACUTE CHANGES THIS SHIFT. PT REMAINS CALM & COOPERATIVE W/ PROPOFOL FOR SEDATION. NICOLAS, ANSWERS YES/NO QUESTIONS W/ NODS, FOLLOWS COMMANDS. LUNG SOUNDS COARSE & DIM T/O, VENT SETTINGS: AC/VC 12/400/5/35%. MONITOR SHOWS SR W/ HR 70s, BP STABLE. NO BM THIS SHIFT, JOHNSON PATENT/ DRAINING. SKIN CONDITION UNCHANGED. WILL CONTINUE TO MONITOR & UPDATE NEEDED.
--- NOTE | 2019-04-23 21:26 | NUR ---
ASSUMED CARE OF PT, REPORT RCV'D FROM TABITHA DENNISON. PT INTUBATED WITH VENT SETTINGS AC/VC 12/400/5/35%, SEDATED ON PROPOFOL 35 MCG/KG/MIN. PT ALERT TO VERBAL STIMULI, FOLLOWING COMMANDS, NODS HEAD YES/NO IN RESPONSE TO QUESTIONS. LUNG SOUNDS COARSE BILATERAL UPPER WITH EXP WHEEZES, LOWER LOBES DIM. VHP TF RUNNING AT GOAL RATE OF 35 ML/HR WITH 30 ML Q4 H20 FLUSH. 120 ML RESIDUALS REFED. JOHNSON PATENT AND DRAINING CLEAR YELLOW URINE WITH SCANT AMOUNT OF SEDIMENT. BILATERAL SOFT WRIST RESTRAINT TO PREVENT ACCIDENTAL SELF-EXTUBATION. PT FEBRILE WITH TEMP 99.2, ALL OTHER VSS. SEE FULL SHIFT ASSESSMENT.
[2019-04-24 03:35] LABS: BASOPHILS ABSOLUTE AUTO 0.01 K/mm3 (0.00-0.23); BASOPHILS PERCENT AUTO 0 % (0-2); EOSINOPHILS PERCENT AUTO 0 % (0-6); Hematocrit 33.2 % (33.0-51.0); Hemoglobin 10.4 g/dL (11.5-16.0); IMMATURE GRAN PERCENT AUTO 2 % (0-1); LYMPHOCYTES ABSOLUTE AUTO 1.75 K/mm3 (0.84-5.20); LYMPHOCYTES PERCENT AUTO 16 % (21-46); MONOCYTES ABSOLUTE AUTO 0.78 K/mm3 (0.16-1.47); MONOCYTES PERCENT AUTO 7 % (4-13); Mean Corpuscular HGB 31.5 pg (26.0-34.0); Mean Corpuscular HGB Conc 31.3 g/dL (31.5-36.5); Mean Corpuscular Volume 101 fL (80-100); Mean Platelet Volume 10.3 fL (9.1-12.4); NEUTROPHILS ABSOLUTE AUTO 8.38 K/mm3 (1.96-9.15); NEUTROPHILS PERCENT AUTO 75 % (41-73); Platelet Count 194 K/mm3 (150-400); RDW Coefficient Variation 14.7 % (11.7-14.2); RDW Standard Deviation 54.7 fL (35.1-46.3); White Blood Cell Count 11.12 K/mm3 (4.00-11.30)
[2019-04-24 03:50] LABS: Calcium, Blood 8.5 mg/dL (8.5-10.1); Magnesium, Blood 2.4 mg/dL (1.6-2.4); Phosphorus, Blood 2.9 mg/dL (2.5-4.9); Potassium, Blood 3.6 mmol/L (3.5-5.5)
--- NOTE | 2019-04-24 06:39 | NUR ---
SHIFT SUMMARY NO ACUTE CHANGES OVERNIGHT. PT REMAINS SEDATED ON PROPOFOL 40 MCG/KG/MIN. VENT SETTINGS REMAIN THE SAME AC/VC 12/400/5/35%. PT CONTINUES TO BE AROUSABLE AND FOLLOW DIRECTIONS. 1000 ML URINARY OUTPUT THIS SHIFT. VSS. WILL REPORT TO DAYSHIFT NURSE.
[2019-04-24 07:05] LABS: Base Excess Venous 11.7 mmol/L; Bicarbonate Venous 33.6 mmol/L (24.0-30.0); PCO2 Venous 53.6 mmHg (38-42); PO2 Venous 45.2 mmHg (38-42); pH Blood Venous 7.44 (7.34-7.37)
--- NOTE | 2019-04-24 09:20 | NUR ---
PT ASSESSED AT 0715; PT ON PROPOFOL AT 40MCG FOR MECH VENT. PT AWAKENS TO VOICE, FOLLOWS COMMANDS AND NODS HEAD TO QUESTIONS. PROPOFOL PLACED ON STANDBY FOR WEANING TRIAL. PT COMPLETELY AWAKE AT 0800 AND PLACED ON PS 5 WITH PEEP 5, FIO2 35%. PT DID FAIRLY WELL FOR AN HOUR BEFORE BECOMING SOB WITH SATS TRENDING DOWN AND FINALLY DECREASING TO 82%. PT CALM T/O. FIO2 INCREASED TO 50% AND PS TO 10 AT 0900. TF HELD. LUNGS COARSE T/O WITH EXP WHEEZES TO BASES. COPIOUS AMT OF SPUTUM SUCTIONED FROM ETT
--- NOTE | 2019-04-24 09:57 | NUR ---
DR ROGERS IN AT 0900 TO SEE PT. PT PLACED BACK ON PS 5, FIO2 40%. IF PT TOLERATES WELL PT MAY BE EXTUBATED THIS AM. PT AWAKE AND COMFORTABLE W/O COMPLAINTS NOW. VSS
--- NOTE | 2019-04-24 10:39 | NUR ---
PT EXTUBATED AT 1020 TO AIRVO 60L/40% FIO2. COPIOUS AMTS OF SPUTUM NT SUCTIONED FROM NASAL PASSAGES. PT CALM, AWAKE, RESP UNLABORED. PT STATES SHE DOES NOT WANT TO BE EXTUBATED AGAIN EVEN IF IT MEANT THAT SHE WOULD ; WILL PASS ALONG TO DR ROGERS.
--- NOTE | 2019-04-24 11:49 | NUR ---
DR ROGERS IN TO CHECK ON PT. PT AWAKE, DOING WELL. PT WOULD LIKE TO REMAIN FULL CODE; SHE CLARIFIED THAT SHE IS AFRAID AND ANXIOUS ABOUT THE THOUGHT OF BEING INTUBATED WHILE AWAKE. CENTRAL LINE TO BE DC'D AFTER POWERGLIDE PLACED.
--- NOTE | 2019-04-24 15:49 | NUR ---
POWERGLIDE PLACED TO [place], 20G PLACED TO INES. CENTRAL LINE FROM RIGHT GROIN DC'D W/O COMPLICATIONS. PT SAT UP IN CHAIR POSITION. PT TOLERATING ICE CHIPS AND SIPS OF WATER, ADVANCE TO CLEAR LIQUIDS PER DR ROGERS. PT CONT TO COUGH UP COPIOUS AMTS OF THICK YELLOW SPUTUM. VSS. VOICE IS AT A WHISPER D/T WEAKNESS BUT HAS BEEN IMPROVING T/O SHIFT.
--- NOTE | 2019-04-24 20:56 | NUR ---
ASSUMED CARE OF PT, REPORT RCV'D FROM TABITHA BALL. PT ALERT AND ORIENTED SITTING UP IN BED ON AIRVO 60L, 40% FI02 WITH SATS>90%. LUNG SOUNDS COARSE T/O WITH EXPIRATORY WHEEZE. PT HAS COPIOUS AMOUNTS OF THICK YELLOW SPUTUM THAT SHE IS ABLE TO BRING UP AND COUGH INTO TISSUES. PT AFEBRILE, VSS, PT DENIES PAIN OR ADDITIONAL NEEDS AT THIS TIME. SEE FULL SHIFT ASSESSMENT.
[2019-04-25 03:17] LABS: BASOPHILS ABSOLUTE AUTO 0.01 K/mm3 (0.00-0.23); BASOPHILS PERCENT AUTO 0 % (0-2); EOSINOPHILS ABSOLUTE AUTO 0.02 K/mm3 (0.00-0.68); EOSINOPHILS PERCENT AUTO 0 % (0-6); Hematocrit 37.5 % (33.0-51.0); Hemoglobin 11.4 g/dL (11.5-16.0); IMMATURE GRAN ABSOLUTE AUTO 0.19 K/mm3 (0.00-0.10); IMMATURE GRAN PERCENT AUTO 2 % (0-1); LYMPHOCYTES ABSOLUTE AUTO 3.24 K/mm3 (0.84-5.20); LYMPHOCYTES PERCENT AUTO 31 % (21-46); MONOCYTES ABSOLUTE AUTO 0.79 K/mm3 (0.16-1.47); MONOCYTES PERCENT AUTO 8 % (4-13); Mean Corpuscular HGB 31.6 pg (26.0-34.0); Mean Corpuscular HGB Conc 30.4 g/dL (31.5-36.5); Mean Corpuscular Volume 104 fL (80-100); Mean Platelet Volume 9.9 fL (9.1-12.4); NEUTROPHILS ABSOLUTE AUTO 6.15 K/mm3 (1.96-9.15); NEUTROPHILS PERCENT AUTO 59 % (41-73); Platelet Count 179 K/mm3 (150-400); RDW Coefficient Variation 14.7 % (11.7-14.2); RDW Standard Deviation 57.2 fL (35.1-46.3); Red Blood Cell Count 3.61 M/mm3 (3.80-5.20)
[2019-04-25 03:40] LABS: Anion Gap 3 mmol/L (6-16); Blood Urea Nitrogen 24 mg/dL (8-24); Bun/Creatinine Ratio 30.8 (12.0-20.0); CO2, Blood 35 mmol/L (21-32); Calcium, Blood 8.6 mg/dL (8.5-10.1); Chloride, Blood 105 mmol/L (98-108); Creatinine, Blood 0.78 mg/dL (0.40-1.00); Free Thyroxine 0.74 ng/dL (0.70-1.60); Glomerular Filtration Rate >60 (60-); Glucose, Blood 141 mg/dL (70-99); Potassium, Blood 3.4 mmol/L (3.5-5.5); Sodium, Blood 143 mmol/L (136-145)
[2019-04-25 03:43] LABS: Triiodothyronine, Free 2.11 pg/mL (2.18-3.98)
--- NOTE | 2019-04-25 05:53 | NUR ---
SHIFT SUMMARY PT REMAINS ALERT AND ORIENTED. AIRVO SETTINGS REMAIN THE SAME FIO2 40% 60L, ATTEMPTS TO TITRATE FIO2 DOWN RESULTED IN PT SATS<90. LUNG SOUNDS COARSE T/O, PT CONTINUES TO HAVE PRODUCTIVE COUGH WITH COPIOUS AMOUNTS OF THICK SPUTUM. PT EXPRESSED "FEAR OF FALLING ASLEEP", PT STATES SHE DOESN'T WANT TO GO "[place] AND NEED INTUBATED AGAIN". PT REQUIRES MAXIMUM ASSISTANCE WITH REPOSITIONING AND CARE. VSS T/O SHIFT. 700 ML URINARY OUTPUT. WILL REPORT TO DAYSHIFT NURSE.
--- NOTE | 2019-04-25 07:30 | NUR ---
BEGINNING OF SHIFT Assumed care at 0700. Bedside report recieved from Jonel LU. At beginning of shift, pt on AirVO at 60 LPM and FiO2 of 40%. RT Lina in room with both RNs. SpO2 85-87%. Lina stated she would like to on BiPAP. Pt alert. States she feels short of breath, but does not feel light headed or dizzy. Pt speaking in 3-4 word sentences with ease. Call placed to Dr Serna by Jonel LU. Orders received for BiPAP. SpO2 90% or greater currently, with BiPAP settings 14/6 and 35% FiO2. Lungs coarse on auscultation with diminished bases. Pt has loose, productive cough with thick, yellow sputum. Sinus rhythm per heart monitor.
--- NOTE | 2019-04-25 07:51 | NUR ---
BEGINNING OF SHIFT Assumed care of pt at 0700. Bedside report recieved from Jonel LU. Pt on AirVo, 60 LPM, 41% FiO2. SpO2 98%. Lungs clear with diminished bases. Pt alert, oriented. Able to communicate needs. Bed in lowest position. Call light in reach. Pt denies need at this time.
--- NOTE | 2019-04-25 09:00 | NUR ---
DR KEN SKELTON IN TO SEE PATIENT Provider states he would like pt to wear AirVO instead of BiPAP if possible to it is easier for pt to expectorate. Switched pt to AirVO. SpO2 dropped to 85-86%. Dr Serna updated. Pt switched back to BiPAP. Plan for patient to receive more frequent chest CPT.
--- NOTE | 2019-04-25 12:15 | NUR ---
PT UP TO CHAIR Pt up to chair with ceiling lift. Pt taken off BiPAP and placed on AirVO with 60 LPM and 65% FiO2. SpO2 90% or greater. Pt tolerated transfer well.
--- NOTE | 2019-04-25 16:00 | NUR ---
PLAN OF CARE DISCUSSED WITH DR KEN SKELTON Pt has been on AirVO for approx 4 hours. Provider states diet may be advanced for dinner.
--- NOTE | 2019-04-25 18:08 | NUR ---
SUMMARY At beginning of shift, pt was having difficulty maintaining SpO2 90% or greater with AirVO and had to be placed on BiPAP. Pt wore BiPAP at 14/6 and 40% FiO2 from beginning of shift until 1200 with brief breaks, no longer than five minutes. At 1200, pt was taken off BiPAP and placed on AirVO 60 LPM and 60% FiO2, and was able to maintain SpO2 90% or greater while sitting up in chair. Pt has remained in chair since this time. Pt has IS and futter valve and bedside and was educated on use. Pt ate soft ADA diet for dinner and tolerated well. Pt in sinus rhtyhm, no events per monitor. Pt is alert, oriented, able to communicate needs and able to follow commands. Pt requires ceiling lift for mobilizing out of bed. Llanes catheter remains in place for strict measurement of fluid intake and output. Pt has not had a BM this shift. Dr Ovidio Brooks aware the pt has not had BM since 04/20/2019. Will continue to closely monitor until care handoff and bedside report with oncoming RN.
--- NOTE | 2019-04-25 19:00 | NUR ---
ASSUMED CARE NOTE: ASSUMED CARE OF PT @ 1900, RECEVIED REPORT FROM EMILIA LU. PT ALERT AND ORIENTEDX4. PT ON BIPAP WITH SETTINGS @ 14/, FiO2 OF 50%, SPO2 95%, WILL TITRATE FiO2 ORDERED. PT IN NSR WITH HR IN THE 70'S. PT DENIES SOB/CP AT THIS TIME. PT C/O PAIN TO THE RIGHT ANKLE 10/10, PT MEDICATED PER EMAR. JOHNSON PATENT AND DRAINING CLEAR YELLOW URINE. ORAL CARE PROVIDED. WILL CONTINUE TO MONITOR PT T/O SHIFT. BED AT LOWEST LEVEL, CALL LIGHT WITHIN REACH.
--- NOTE | 2019-04-25 22:37 | NUR ---
UPDATE: WHILE PT WAS COUGHING, PT TOOK OFF BIPAP MASK. SPO2 WENT DOWN INTO THE 60% PT BEGAN TO SCREAM "TAKE IT OFF" PT WAS PLACED ON THE AIRVO AND SHE WAS EDUCATED TO CALL AND ASK FOR HELP BEFORE SHE TAKES THE BIPAP/AIRVO OFF. SHE AGREED TO ASK FOR HELP. AFTER PT RECOVERED, SHE WAS GIVEN A BEDBATH. CENTRAL LINE DRESSING CHANGED WELL. WILL CONTINUE TO MONITOR PT T/O SHIFT.
--- NOTE | 2019-04-26 01:42 | NUR ---
UPDATE: PT PLACED ON AIRVO @ 40L WITH FiO2 OF 40%. PT REFUSED TO WEAR BIPAP, DUE TO REOCCURING PRODUCTIVE COUGH. WILL CONTINUE TO MONITOR PT.
[2019-04-26 03:35] LABS: Hematocrit 36.8 % (33.0-51.0); Hemoglobin 10.8 g/dL (11.5-16.0); Mean Corpuscular HGB 31.2 pg (26.0-34.0); Mean Corpuscular HGB Conc 29.3 g/dL (31.5-36.5); Mean Corpuscular Volume 106 fL (80-100); Platelet Count 148 K/mm3 (150-400); RDW Coefficient Variation 14.7 % (11.7-14.2); RDW Standard Deviation 57.7 fL (35.1-46.3); Red Blood Cell Count 3.46 M/mm3 (3.80-5.20); White Blood Cell Count 9.57 K/mm3 (4.00-11.30)
[2019-04-26 03:49] LABS: Anion Gap 2 mmol/L (6-16); Blood Urea Nitrogen 19 mg/dL (8-24); Bun/Creatinine Ratio 27.9 (12.0-20.0); CO2, Blood 37 mmol/L (21-32); Calcium, Blood 8.4 mg/dL (8.5-10.1); Chloride, Blood 104 mmol/L (98-108); Creatinine, Blood 0.68 mg/dL (0.40-1.00); Glomerular Filtration Rate >60 (60-); Glucose, Blood 166 mg/dL (70-99); Potassium, Blood 3.5 mmol/L (3.5-5.5); Sodium, Blood 143 mmol/L (136-145)
[2019-04-26 03:56] LABS: BAND PERCENT MAN 4 % (0-8); BASOPHILS PERCENT MAN 0 % (0-2); EOSINOPHILS ABSOLUTE MAN 0.09 K/mm3 (0.00-0.68); EOSINOPHILS PERCENT MAN 1 % (0-6); LYMPHOCYTES PERCENT MAN 23 % (21-46); METAMYELOCYTE ABSOLUTE MAN 0.09 K/mm3 (0.00-0.00); METAMYELOCYTE PERCENT MAN 1 % (0-0); MONOCYTES ABSOLUTE MAN 0.66 K/mm3 (0.16-1.47); MONOCYTES PERCENT MAN 7 % (4-13); SEG NEUTROPHILS PERCENT MAN 64 % (41-73); TOTAL CELLS COUNTED 100
--- NOTE | 2019-04-26 05:29 | NUR ---
SHIFT SUMMARY: PT REMAINS ON BIPAP WITH SETTINGS @ 12/6, FiO2 45% , SPO2 AT 92-94%. PT WAS ALSO ON AIRVO (60L, FIO2 50%) FOR ABOUT 3HRS THIS SHIFT, PT WAS ABLE TO MAINTAIN SPO2 ABOVE 90%. WHEN PT IS REPOSITIONED, PT BECOMES DYSPNEIC. PT HAD A SHORT RUN OF NSVT, PT DENIED ANY CP. VSS. PT CURRENTLY IN NSR WITH HR IN THE 70'S. JOHNSON PATNET AND DRAINING CLEAR YELLOW URINE. WILL CONTINUE TO MONITOR PT UNTIL REPORT IS GIVEN TO ONCOMING SHIFT. BED AT LOWEST LEVEL, CALL LIGHT WITHIN REACH.
--- NOTE | 2019-04-26 07:30 | NUR ---
BEGINNING OF SHIFT Assumed care at 0700. Bedside report received from Isamar LU. Pt initially on BiPAP 14/6 and 45% FiO2. Pt taken off BiPAP and placed on AirVO. Pt alert, oriented, able to communicate needs and follow commands. Pt placed into chair using ceiling lift. Sinus rhtyhm per monitor. Call light in reach. Pt denies need at this time.
--- NOTE | 2019-04-26 09:15 | NUR ---
DR ROGERS IN TO SEE PT Pt working with physical therapy and occupational therapy. Pt standing up, using FWW and gait belt. Able to take 2-3 steps before returning back to recliner. Pt then swtiched from AirVO to high flow NC at 10 LPM. SpO2 90% or greater.
--- NOTE | 2019-04-26 11:01 | NUR ---
UPDATE Pt on 7 LPM HFNC. SpO2 97%. This RN titrated pt down to 5 LPM HFNC. SpO2 94% at this time. IS and flutter valve at bedside. This RN educate pt on proper usage and indication for each device. Pt demonstrated correct usage.
--- NOTE | 2019-04-26 12:25 | NUR ---
LUNCH Pt assisted to stand from recliner three times by this RN and two other staff. Pt did this activity while on 4 LPM NC. SpO2 remained 90% or greater for this activity. Pt remains sitting up in recliner, feeding self at this time.
--- NOTE | 2019-04-26 15:48 | NUR ---
UPDATE Llanes catheter removed. Pt stood again, using FWW and gait belt. Linens on chair changed. Krystal care performed. This RN spoke to Dr Nolan regarding BiPAP, he stated plan for pt to remain off BiPAP tonight unless she is in respiratory distress.
--- NOTE | 2019-04-26 17:52 | NUR ---
SUMMARY Pt has been up in chair for entire shift. Pt has stood up from chair using FWW and gait belt several times for toileting and linen changes. At this time, pt is on 4 LPM NC. Pt alert and oriented. Sinus rhythm per monitor. No events per monitor. Pt is currently PCU status. Will continue to closely monitor until care handoff and bedside report with oncoming RN.
--- NOTE | 2019-04-26 20:41 | NUR ---
ASSUME CARE PT PRESENTS IN BED, ALERT, CALM, AND COOPERATIVE. LUNGS COARSE WITH DIMINISHED LOWER LOBES. VSS. SATS ABOVE 90%. AFEBRILE. PULSES STRONG THROUGHOUT. PT PLACED ON BEDPAN AT BEGINNIGN OF SHIFT. WILL CONTINUE TO MONITOR.
[2019-04-27 03:44] LABS: Albumin, Blood 2.9 g/dL (3.4-5.0); Anion Gap 4 mmol/L (6-16); Blood Urea Nitrogen 18 mg/dL (8-24); Bun/Creatinine Ratio 30.5 (12.0-20.0); CO2, Blood 36 mmol/L (21-32); Calcium, Blood 8.9 mg/dL (8.5-10.1); Chloride, Blood 103 mmol/L (98-108); Creatinine, Blood 0.59 mg/dL (0.40-1.00); Glomerular Filtration Rate >60 (60-); Glucose, Blood 180 mg/dL (70-99); Phosphorus, Blood 3.8 mg/dL (2.5-4.9); Potassium, Blood 4.1 mmol/L (3.5-5.5); Sodium, Blood 143 mmol/L (136-145)
--- NOTE | 2019-04-27 10:30 | NUR ---
DR. GONZALEZ AT BEDSIDE. NO NEW ORDERS AT THIS TIME.
--- NOTE | 2019-04-27 11:50 | NUR ---
PT AND OT AT BEDSIDE. GOT PT UP TO RECLINER. TACHYCARDIAC AND BUTTS, RECOVERED QUICKLY. TOLERATED WELL.
--- NOTE | 2019-04-27 12:05 | NUR ---
PT SITTING UP IN RECLINER. O2 AT 6 L/MIN NC, COUGH MORE PRODUCTIVE NOW THAT SHE'S SITTING UP. SLIGHTLY SLEEPY. DYSPNEIC ON EXERTION, BUT RECOVERS AFTER RESTING. LUNG SOUNDS COARSE IN UPPER LOBES, DIMINISHED AND FINE CRACKLES IN BILATERAL LL. USING BEDPAN WHILE IN BED, MAY BE ABLE TO USE BSC WHILE OOB. SKIN IS EXTREMELY DRY. DENIES PAIN.
--- NOTE | 2019-04-27 17:09 | NUR ---
PT SITTING IN RECLINER, ALERT AND IN GOOD SPIRITS. HRR AND VSS. ON OXYGEN @ 6 L/MIN NC WITH O2 SATS > 92%. COUGH IS SLIGHTLY MORE PRODUCTIVE, HAS FINE CRACKLES IN BILATERAL BASES. APPETITE IS IMPROVED. VOIDING PER BSC, NO BM YET TODAY.
--- NOTE | 2019-04-27 17:43 | NUR ---
SHIFT SUMMARY: PT TO BE TRANSFERRED TO PCU 16 SHORTLY. GOOD APPETITE. SITTING IN RECLINER. VSS, HRR. LUNG SOUNDS UNCHANGED BUT HAS SLIGHTLY MORE PRODUCTIVE COUGH NOW. DENIES PAIN. ALERT, PLEASANT AND COOPERATIVE. PLAN IS FOR PT TO TRANSFER TO [facility] WHEN MEDICALLY STABLE.
--- NOTE | 2019-04-28 05:08 | NUR ---
Assumed care of patient at 1900, patient awake and alert sitting in recliner. no signs of distress, pt denies pain. She is slow to respond and speak, but alert and oriented. Lung sounds coarse and diminished in bases, 02 saturation at 92% Will continue to monitor.
[2019-04-28 05:43] LABS: Albumin, Blood 3.1 g/dL (3.4-5.0); Anion Gap 3 mmol/L (6-16); Blood Urea Nitrogen 14 mg/dL (8-24); Bun/Creatinine Ratio 24.4 (12.0-20.0); CO2, Blood 39 mmol/L (21-32); Calcium, Blood 9.1 mg/dL (8.5-10.1); Chloride, Blood 96 mmol/L (98-108); Creatinine, Blood 0.57 mg/dL (0.40-1.00); Free Thyroxine 1.11 ng/dL (0.70-1.60); Glomerular Filtration Rate >60 (60-); Glucose, Blood 179 mg/dL (70-99); Phosphorus, Blood 2.7 mg/dL (2.5-4.9); Potassium, Blood 4.1 mmol/L (3.5-5.5); Sodium, Blood 138 mmol/L (136-145)
--- NOTE | 2019-04-28 07:52 | NUR ---
SHIFT SUMMARY PATIENT TRANSFERRED TO BED WITH 2 STAFF ASSIST AT AROUND 2200, SPENT MOST OF THE NIGHT IN BED, AND TRANSFERRED TO RECLINER AT AROUND 0500. SHE NEEDED TO VOID OFTEN, WHICH INTERRUPTED HER SLEEP. USING BEDPAN WHILE IN BED, AND BEDSIDE COMMODE WHEN IN RECLINER, PATIENT WAS INCONTINENT FOR OVER HALF OF THE VOIDS. NO BM THIS SHIFT. PATIENT WAS ABLE TO TRANSFER SLOWLY, BUT WITH MINIMAL TO NO PHYSICAL ASSIST BY END OF SHIFT. PATIENT ASSISTED WITH ELENA-CARE AND TREATMENT TO RASH IN SKIN FOLDS PER EMAR AND UNIT PROTOCOL. VITAL SIGNS STABLE T/O SHIFT. PASSED CARE AND REPORT TO ONCOMING SHIFT AT 0700, PATIENT SLEEPING IN RECLINER, CALL LIGHT W/IN REACH
--- NOTE | 2019-04-28 17:53 | NUR ---
PT HAS BEEN IN RECLINER MOST ALL DAY, DID NOT WANT TO RETURN TO BED. DOING OK, SLEEPS HARD WHEN SHE IS NAPPING. NO FURTHER CHANGES THIS SHIFT. CALL LIGHT IN REACH.
[2019-04-29 05:19] LABS: Albumin, Blood 3.1 g/dL (3.4-5.0); Anion Gap 3 mmol/L (6-16); Blood Urea Nitrogen 17 mg/dL (8-24); Bun/Creatinine Ratio 30.6 (12.0-20.0); CO2, Blood 38 mmol/L (21-32); Calcium, Blood 9.4 mg/dL (8.5-10.1); Chloride, Blood 96 mmol/L (98-108); Creatinine, Blood 0.56 mg/dL (0.40-1.00); Glomerular Filtration Rate >60 (60-); Glucose, Blood 167 mg/dL (70-99); Phosphorus, Blood 3.1 mg/dL (2.5-4.9); Potassium, Blood 4.1 mmol/L (3.5-5.5); Sodium, Blood 137 mmol/L (136-145)
--- NOTE | 2019-04-29 06:08 | NUR ---
SHIFT SUMMARY: PATIENT SLEPT MOST OF SHIFT IN RECLINER, MULTIPLE ASSISTS TO BSC, VSS. PATIENT USING CALL LIGHT APPROPRIATLY, MONITORED CLOSELY.
--- NOTE | 2019-04-29 07:56 | NUR ---
AM NOTE... ASSUMED CARE OF PT APROX 0700. PT IS A&Ox4 AND SBA IN THE ROOM. PT IS ON 4L NC WITH O2 SATS >94%, PT'S HOME O2 IS 2.5 WILL TITRATE PT TOLERATES. PT'S VS STABLE AT THIS TIME. PT HAS EDEMA TO HER BLE. L/S COARSE EXP WHEEZES SCATTERED T/O. PT IS NSR IN THE 80'S PER TEST FIXTURE DESIGNER. CALL LIGHT IN REACH WILL CONTINUE TO MONITOR.
--- NOTE | 2019-04-29 15:41 | NUR ---
PT TRANSFER... PT WAS TRANSFERED TO SURGICAL FLOOR. PT'S VS STABLE AT THIS TIME. PT DENIES CHEST PAIN/PRESSURE N/V OR INCREASED SOB. PT IS ON 3L NC, HER BASELINE IS 2.5. ALL OF PT'S BELONGINS PACKED AND SENT WITH PT.
--- NOTE | 2019-04-29 17:33 | NUR ---
SHIFT SUMMARY PT HAS DONE WELL SINCE ARRIVAL TO UNIT FROM [facility] AT APROX 1330. O2 SAT STABLE ON 3L O2 VIA NC. UP TO CHAIR. SBA W/FWW TO BSC.
--- NOTE | 2019-04-30 07:19 | NUR ---
SHIFT SUMMARY PT RESTED WELL IN CHAIR T/O NIGHT. AAOX4/DROWSY. PT DENIES DISCOMFORT/NAUSEA T/O NIGHT. LUNG SOUNDS EXP WHEEZES T/O NIGHT, MINIMIZED POST BREATHING TX. ON 3L VIA NC T/O NIGHT. UP TO BSC SBA WITH FWW, TOLERATES WELL. NO ACUTE CHANGES OVER NIGHT. PT SITTING UP IN CHAIR AT THIS TIME WATCHING TV WITH CALL LIGHT IN REACH. REPORT TO DAY SHIFT RN.
[2019-04-30 08:50] LABS: Free Thyroxine 1.41 ng/dL (0.70-1.60)
[2019-04-30 08:51] LABS: Triiodothyronine, Free 3.59 pg/mL (2.18-3.98)
[2019-04-30] MEDS ORDERED: ACET325 PO (11:47)
[2019-04-30] MEDS ORDERED: MIRALAX119 GM PO (11:58)
[2019-04-30] MEDS ORDERED: Pedi-Dri 100,0060 GM TOP (11:59)
[2019-04-30] MEDS ORDERED: Humalog100 UNIT/1 SC (12:02)
[2019-04-30] MEDS ORDERED: LIOT5 PO (12:03)
--- NOTE | 2019-04-30 15:36 | NUR ---
DISCHARGE: DC PACKET MADE READY, TRANSPORT HERE AT ABOUT 1530. PT LEFT UNIT VIA WHEELCHAIR WITH 02 AT 1535. REPORT GIVEN TO TABITHA TIPTON AT [facility] AT THIS TIME. FAMILY AWARE OF PT DISCHARGE
== END 2019-04-30 15:32 | DRG 208 ==
LOC: ER 20:26 → PCU 22:42 → ICUE 22:42 → PCU 04-21 01:03 → ICUE 04-21 09:37 → PCU 04-27 18:17 → SURS 04-29 15:50
PROVIDERS: Emergency Medicine; Internal Medicine; Internal Medicine Critical Care Medicine; Internal Medicine Endocrinology, Diabetes & Metabolism; ADMIT Hospitalist
PROC: 06HY33Z Insertion of Infusion Device into Lower Vein, Percutaneous Approach (ICD-10-PCS; principal; 2019-04-21)
PROC: 5A1945Z Respiratory Ventilation, 24-96 Consecutive Hours (ICD-10-PCS; 2019-04-21)
PROC: 0BH17EZ Insertion of Endotracheal Airway into Trachea, Via Natural or Artificial Opening (ICD-10-PCS; 2019-04-21)
PROC: 5A09357 Assistance with Respiratory Ventilation, Less than 24 Consecutive Hours, Continuous Positive Airway Pressure (ICD-10-PCS; 2019-04-21)
DX: J44.1 Chronic obstructive pulmonary disease with (acute) exacerbation (principal); E03.5 Myxedema coma; J96.22 Acute and chronic respiratory failure with hypercapnia; J96.21 Acute and chronic respiratory failure with hypoxia; J18.9 Pneumonia, unspecified organism; Z68.41 Body mass index [BMI] 40.0-44.9, adult; I31.3 Pericardial effusion (noninflammatory); E87.1 Hypo-osmolality and hyponatremia; N17.9 Acute kidney failure, unspecified; Z99.81 Dependence on supplemental oxygen; E03.9 Hypothyroidism, unspecified; E66.01 Morbid (severe) obesity due to excess calories; F17.210 Nicotine dependence, cigarettes, uncomplicated; F32.9 Major depressive disorder, single episode, unspecified; Z91.14 Patient's other noncompliance with medication regimen; G47.33 Obstructive sleep apnea (adult) (pediatric); E83.39 Other disorders of phosphorus metabolism; E83.51 Hypocalcemia; E87.5 Hyperkalemia; R22.0 Localized swelling, mass and lump, head; Z79.4 Long term (current) use of insulin
CPT/HCPCS: 31500; 31720; 36415; 36556; 36600; 51702; 71045; 71260; 80048; 80053; 80069; 81001; 82330; 82533; 82803; 82947; 83605; 83735; 83880; 84100; 84132; 84439; 84443; 84481; 84484; 85025; 87040; 87070; 87076; 87086; 87147; 87205; 90686; 93005; 93010; 93308; 93321; 94002; 94003; 94640; 94644; 94660; 94667; 94668; 94760; 94762; 96374-59; 96375-59; 97110; 97116; 97162; 97167; 97530; 97535; 99285-25; A9270; C1751; C9113; G0008; J0696; J1650; J1720; J1815; J1940; J1956; J2704; J2930; J3010; J3475; J3480; J7030; J7050; J7060; J7120; Q9967

== ENCOUNTER → 2019-07-25 | Outpatient (CLI) | payer OTHER ==
[~2019-07-25] MED LIST changes: +ACET325 PO; +ALBU90OI INH; +Albuterol S5 MG/1 ML NEB; +BUPROPION XL150 M1 PO; +FURO40 PO; +Humalog100 UNIT/1 SC; +LIOT5 PO; +MIRALAX119 GM PO; +POTCHL10ER PO; +Pedi-Dri 100,0060 GM TOP; +Synthroid300 MCG PO
[2019-07-25 15:51] LABS: Alanine Aminotransfer (ALT/SGP 39 U/L (12-78); Albumin, Blood 3.5 g/dL (3.4-5.0); Albumin/Globulin Ratio 0.9 (0.8-1.8); Alk Phos 116 U/L (50-136); Anion Gap 4 mmol/L (6-16); Aspartate Aminotrans (AST/SGOT 24 U/L (12-37); Bilirubin, Total 0.4 mg/dL (0.1-1.0); Blood Urea Nitrogen 14 mg/dL (8-24); Bun/Creatinine Ratio 20.6 (12.0-20.0); CO2, Blood 33 mmol/L (21-32); Calcium, Blood 9.3 mg/dL (8.5-10.1); Chloride, Blood 101 mmol/L (98-108); Creatinine, Blood 0.68 mg/dL (0.40-1.00); Glomerular Filtration Rate >60 (60-); Glucose, Blood 226 mg/dL (70-99); Potassium, Blood 4.2 mmol/L (3.5-5.5); Sodium, Blood 138 mmol/L (136-145); Total Protein, Blood 7.5 g/dL (6.4-8.2)
== END | disposition home or self-care (01) ==
LOC: LAB 14:24 → LAB SHORT 14:24
PROVIDERS: Internal Medicine Endocrinology, Diabetes & Metabolism
DX: E11.65 Type 2 diabetes mellitus with hyperglycemia (principal)
CPT/HCPCS: 80053

== ENCOUNTER → 2020-12-26 | Outpatient (CLI) | payer OTHER ==
[~2020-12-26] MED LIST changes: +AMOCLA875 PO; +ONDA4ODT MM
== END | disposition home or self-care (01) ==
LOC: LAB SHORT 11:21
DX: N30.01 Acute cystitis with hematuria (principal)
CPT/HCPCS: 87077; 87086; 87186

== ENCOUNTER 2022-10-09 19:50 | Emergency (ER) | payer OTHER ==
[~2022-10-09] VITALS: Ht 167.6 cm; Wt 127.0 kg
[~2022-10-09 19:50] MED LIST changes: +HUMALOG100 UNIT/1 SC; -Humalog100 UNIT/1 SC
[2022-10-09 19:58] VITALS: BP 133/69
== END 2022-10-09 20:53 | disposition home or self-care (01) ==
LOC: ER 19:50
DX: S80.01XA Contusion of right knee, initial encounter (principal); W19.XXXA Unspecified fall, initial encounter; Y92.481 Parking lot as the place of occurrence of the external cause; Z88.5 Allergy status to narcotic agent; Z88.8 Allergy status to other drugs, medicaments and biological substances; Z79.4 Long term (current) use of insulin; Z79.890 Hormone replacement therapy; Z79.899 Other long term (current) drug therapy; J44.9 Chronic obstructive pulmonary disease, unspecified; E03.9 Hypothyroidism, unspecified; E11.9 Type 2 diabetes mellitus without complications; F17.210 Nicotine dependence, cigarettes, uncomplicated
CPT/HCPCS: 73562-RT; 99283-25

== ENCOUNTER 2022-10-13 19:49 | Inpatient (IN) | payer OTHER ==
[~2022-10-13] VITALS: Ht 167.6 cm; Wt 130.7 kg
[2022-10-13] MEDS ORDERED: FUROSEMIDE40 MG PO (22:06)
[2022-10-13] MEDS ORDERED: GABAPENTIN600 MG PO (22:07)
[2022-10-13] MEDS ORDERED: IBUP600 PO (22:07)
[2022-10-13 23:31] LABS: Bicarbonate Venous 28.8 mmol/L (24.0-30.0); pH Blood Venous 7.26 (7.34-7.37)
[2022-10-14 02:00] VITALS: BP 137/79
[2022-10-14 02:00] LABS: BASOPHILS ABSOLUTE AUTO 0.05 K/mm3 (0.00-0.23); BASOPHILS PERCENT AUTO 1 % (0-2); EOSINOPHILS ABSOLUTE AUTO 0.05 K/mm3 (0.00-0.68); EOSINOPHILS PERCENT AUTO 1 % (0-6); Hemoglobin 17.1 g/dL (11.5-16.0); IMMATURE GRAN ABSOLUTE AUTO 0.04 K/mm3 (0.00-0.10); IMMATURE GRAN PERCENT AUTO 0 % (0-1); LYMPHOCYTES ABSOLUTE AUTO 2.14 K/mm3 (0.84-5.20); LYMPHOCYTES PERCENT AUTO 19 % (21-46); MONOCYTES PERCENT AUTO 5 % (4-13); Mean Corpuscular HGB 32.4 pg (26.0-34.0); Mean Corpuscular HGB Conc 30.5 g/dL (31.5-36.5); Mean Corpuscular Volume 106 fL (80-100); Mean Platelet Volume 10.4 fL (9.1-12.4); NEUTROPHILS ABSOLUTE AUTO 8.15 K/mm3 (1.96-9.15); NEUTROPHILS PERCENT AUTO 74 % (41-73); Platelet Count 175 K/mm3 (150-400); RDW Coefficient Variation 14.4 % (11.7-14.2); RDW Standard Deviation 57.3 fL (35.1-46.3); Red Blood Cell Count 5.28 M/mm3 (3.80-5.20); White Blood Cell Count 11.03 K/mm3 (4.00-11.30)
[2022-10-14 02:32] LABS: Albumin, Blood 3.4 g/dL (3.4-5.0); Albumin/Globulin Ratio 0.9 (0.8-1.8); Bilirubin, Total 0.4 mg/dL (0.1-1.0); Bun/Creatinine Ratio 13.3 (12.0-20.0); Calcium, Blood 9.5 mg/dL (8.5-10.1); Creatinine, Blood 0.9 mg/dL (0.40-1.00); Globulin, Blood 3.6 g/dL (2.2-4.0)
--- NOTE | 2022-10-14 03:01 | NUR ---
SAFETY & EDUCATION NOTE PT & FAMILY EDUCATED RE: IGNITION SOURCES & RISK OF INJURY WHILE OXYGEN IS IN USE. PT DENIES SMOKING AND PT & FAMILY VERBALIZE UNDERSTANDING.
--- NOTE | 2022-10-14 03:01 | NUR ---
ARRIVAL TO PCU2 PT ARRIVED TO PCU AT APPROXIMATELY 0140. PT SLID OVER FROM ER GURNEY TO HOSPITAL BED BY 4 CLINICAL STAFF MEMEBERS. RT ARRIVED WITH PT, MANAGING BIPAP. PT A&Ox4, COMMUNICATES NEEDS APPROPRIATELY, SBA TO BSC, CONTINENT OF URINE. ORIENTED PT TO CALL LIGHT/UNIT. BP STABLE, SINUS 60's, DENIES CP/PRESSURE. SpO2> 92% ON BIPAP IN AVAPS SETTINGS, DENIES SOB. CALL LIGHT IN REACH, BED IN LOWEST POSITION.
[2022-10-14 03:45] VITALS: BP 131/73
--- NOTE | 2022-10-14 06:13 | NUR ---
SHIFT SUMMARY SEE PREVIOUS NOTE. NO ACUTE CHANGES. BP STABLE, SB-SR 50-70's, DENIES CP/PRESSURE. SpO2> 92% ON BIPAP ON AVAPS SETTINGS WITH 3L BLEED IN OR 5L VIA NC, DENIES SOB. SBA TO BSC. NO OTHER EVENTS, WILL REPORT TO ONCOMING RN.
[2022-10-14 07:23] VITALS: BP 134/78
--- NOTE | 2022-10-14 11:18 | NUR ---
care assumption this rn assumed care at 0700. vital signs stable. patient on bipap with avap settings on 3.5l bleed in. patient transitioned to nasal cannual for morning adls and breakfast. patient on 4l nc. spo2 >90%. patient is alert and oriented x4. perrla. patient uses call light appropriately to make needs knonw. patient is off and on sleeping. patient reports no pain, no chest pain/pressure and patient reports no shortness of breath. see shift assessment for further detials. md rachel in to see patient this am and discussed plan of care. patient is able to get up and use the bedside comode. morning adls done indepdently by patient. plan of care is up to date.
--- NOTE | 2022-10-14 11:21 | NUR ---
safety note this rn assessed and provided education on fire ignition and sources. this rn educated the risks while being on oxygen. patient verbalized understanding, and stated not having any ignition sources.
[2022-10-14 11:50] VITALS: BP 115/72
--- NOTE | 2022-10-14 15:33 | NUR ---
shift summary/transfer note this rn gave report to tresa lemos on medical floor. patient transfering to room 302. patient transfered with all belongings and in no distress. patient said she would notify daughter of moving rooms. no acute changes this shift. plan of care remains up to date.
[2022-10-14 15:38] VITALS: BP 122/52
--- NOTE | 2022-10-14 15:50 | NUR ---
1505 RECEIVED TO ROOM.
--- NOTE | 2022-10-14 17:11 | NUR ---
PT TRANSFERED IN FROM PCU TODAY ABOUT 1500. HAS BEEN PLEASANT AND TALKATIVE. STATES ABLE TO AMBULATE TO BATHROOM TODAY ON O2. DID DESAT TO 88 UPON RETURN TO BED, THEN RECOVERED QUICKLY. PT STATES FEELS MORE IMPROVEMENT TODAY. INTERESTED IF CAN STILL GO ON TRIP TO [place] AND [place] NEXT WEEK. EXPLAINED WILL NOT KNOW FOR SURE AT THIS TIME. EXPLAINED THAT MANY PEOPLE, EVEN IF ON O2, SHOULD BE ABLE TO TRAVEL IF HEALTH IS STABLE. EXPLAINED THAT THIS WILL BE A QUESTION FOR TOMORROW. PT VERBALIZED UNDERSTANDING. BED IN LOW POSITION, CALL LITE IN REACH CALLS APPROP
[2022-10-14 19:19] VITALS: BP 117/66
[2022-10-15 04:10] VITALS: BP 130/67
--- NOTE | 2022-10-15 04:12 | NUR ---
SHIFT SUMMARY NO ACUTE CHANGES NOTED DURING SHIFT. PT ALERT AND ORIENTED, CALLS APPROPRIATELY. PT REMAINS ON 4L, SBA IN ROOM WITH WALKER. NO C/O PAIN NOTED. PENDING ECHO. WILL CONTINUE TO MONITOR. CALL LIGHT WITHIN REACH.
[2022-10-15 06:36] LABS: Bun/Creatinine Ratio 19.5 (12.0-20.0); Calcium, Blood 10.5 mg/dL (8.5-10.1); Creatinine, Blood 0.92 mg/dL (0.40-1.00); Potassium, Blood 3.9 mmol/L (3.5-5.5)
[2022-10-15 07:26] VITALS: BP 115/55
[2022-10-15 09:47] LABS: Hemoglobin 17.8 g/dL (11.5-16.0); Mean Corpuscular HGB 32.2 pg (26.0-34.0); Mean Corpuscular HGB Conc 30.8 g/dL (31.5-36.5); Mean Corpuscular Volume 104 fL (80-100); Mean Platelet Volume 11.7 fL (9.1-12.4); Platelet Count 213 K/mm3 (150-400); RDW Coefficient Variation 14.3 % (11.7-14.2); RDW Standard Deviation 55.7 fL (35.1-46.3); Red Blood Cell Count 5.53 M/mm3 (3.80-5.20); White Blood Cell Count 14.15 K/mm3 (4.00-11.30)
[2022-10-15 09:49] LABS: Hematocrit 57.7 % (33.0-51.0)
--- NOTE | 2022-10-15 13:07 | NUR ---
FAMILY IN VISITING, PATIENT NONCOMPLIANT WITH DM DIET, FAMILY ENCOURAGING HER TO FOLLOW ADA DIET
[2022-10-15 16:26] VITALS: BP 117/54
--- NOTE | 2022-10-15 18:33 | NUR ---
ALERT AND ORIENTED, NONCOMPLIANT WITH SWEETNERS FOR ADA DIET, ENCOURAGE PATIENT NOT TO USE SUGAR, FAMILY VISITED, NO ACUTE CHANGES, 4L O2, CALL LIGHT WITH IN REACH, WILL RELAY TO PM RN
[2022-10-15 19:27] VITALS: BP 120/57
[2022-10-16 04:24] VITALS: BP 136/66
--- NOTE | 2022-10-16 04:26 | NUR ---
SHIFT SUMMARY; NO ACUTE CHANGES OVERNIGHT. THE PT IS AXO X3-4 AND A STANDBY ASSIST TO THE BATHROOM. THE PT HAS BEEN SLEEPING FOR THE MAJORITY OF THE NIGHT. THE PT CURRENTLY HAS 4L NC ON W/ O2 SATS GREATER THAN 92%. THE PT DENIES ANY CHEST PAIN/PRESSURE, SOB OR N/V T/O THE SHIFT. CURRENTLY THE PT IS SLEEPING IN BED WITH THE BED IN THE LOWEST POSITION AND THE CALL LIGHT AT BEDSIDE.
[2022-10-16 06:08] LABS: Albumin, Blood 3.1 g/dL (3.4-5.0); Albumin/Globulin Ratio 0.8 (0.8-1.8); Bilirubin, Total 0.4 mg/dL (0.1-1.0); Bun/Creatinine Ratio 23.5 (12.0-20.0); Calcium, Blood 10.5 mg/dL (8.5-10.1); Creatinine, Blood 0.85 mg/dL (0.40-1.00); Free Thyroxine 0.82 ng/dL (0.70-1.60); Globulin, Blood 3.7 g/dL (2.2-4.0); Magnesium, Blood 2.2 mg/dL (1.6-2.4); Potassium, Blood 4.8 mmol/L (3.5-5.5); Thyroid Stimulating Hormone 15.5 uIU/mL (0.360-4.800); Total Protein, Blood 6.8 g/dL (6.4-8.2); Triiodothyronine, Free 1.41 pg/mL (2.18-3.98)
[2022-10-16 07:39] VITALS: BP 127/53
--- NOTE | 2022-10-16 13:47 | NUR ---
ECHO AT BEDSIDE DONE
--- NOTE | 2022-10-16 18:15 | NUR ---
ALERT AND ORIENTED, INCREASED O2 VIA NC TO 5L, SATS 81% WHILE SLEEPING OR WITH EXERTION, PATIENT HAS A INCREASED TIME TO RECOVER FROM 81%, NEW IV SITE INES, ECHO DONE NO RESULTS IN TO VIEW, VSS, POSSIBLE DISCHARGE TOMORROW, PATIENT WILL NEED HOME OXYGEN EVALUATION PRIOR TO DISCHARGE, CALL LIGHT WITH IN REACH, WILL RELAY TO PM RN
[2022-10-16 19:33] VITALS: BP 137/69
[2022-10-17 02:18] VITALS: BP 150/73
--- NOTE | 2022-10-17 04:20 | NUR ---
SHIFT SUMMARY; NO ACUTE CHANGES OVERNIGHT. THE PT IS AXO X4 AND INDEPENDENT TO THE BSC. THE PT REQUESTED PRN PAIN MEDICATION AT THE BEGINNING OF SHIFT FOR KNEE PAIN BUT HAS SINCE BEEN ABLE TO REST COMFORTABLY. THE PT IS ON 7L NC PRESENTLY SATING 90-93% T/O THE NIGHT. THE PT DENIES ANY SOB OR CHEST PAIN/PRESSURE. CURRENTLY THE PT IS RESTING IN BED WITH THE BED IN THE LOWEST POSITION AND THE CALL LIGHT AT BEDSIDE. FIRE SAFETY MAINTAINED T/O THE SHIFT.
[2022-10-17 04:52] LABS: Hematocrit 54.9 % (33.0-51.0); Hemoglobin 17.7 g/dL (11.5-16.0); Mean Corpuscular HGB 32.2 pg (26.0-34.0); Mean Corpuscular HGB Conc 32.2 g/dL (31.5-36.5); Mean Corpuscular Volume 100 fL (80-100); Mean Platelet Volume 10.6 fL (9.1-12.4); Platelet Count 204 K/mm3 (150-400); RDW Coefficient Variation 14.3 % (11.7-14.2); RDW Standard Deviation 53.1 fL (35.1-46.3); White Blood Cell Count 10.18 K/mm3 (4.00-11.30)
[2022-10-17 05:17] LABS: Albumin, Blood 3.3 g/dL (3.4-5.0); Albumin/Globulin Ratio 0.9 (0.8-1.8); Bilirubin, Total 0.6 mg/dL (0.1-1.0); Bun/Creatinine Ratio 29.7 (12.0-20.0); Calcium, Blood 10.9 mg/dL (8.5-10.1); Creatinine, Blood 0.77 mg/dL (0.40-1.00); Globulin, Blood 3.6 g/dL (2.2-4.0); Magnesium, Blood 2.3 mg/dL (1.6-2.4); Total Protein, Blood 6.9 g/dL (6.4-8.2)
--- NOTE | 2022-10-17 10:36 | NUR ---
DR LIVE ROUNDED, PATIENT ON HIGH FLOW OXYGEN AT 5L PRESENTLY, SATS STAYING 90% AND MORE, PLEASANT TO CARE, FLUID RESTRICTION STARTED, POSSIBLE CPAP TONIGHT, ALERT AND ORIENTED, CALL LIGHT WITH IN REACH
[2022-10-17 15:40] VITALS: BP 142/66
--- NOTE | 2022-10-17 18:32 | NUR ---
PLEASANT TO ALL CARE, CALL LIGHT WITH IN REACH, MAKES NEEDS KNOWN, 4L HIGHFLOW OXYGEN SATS 95%, NO DESATS FROM EXERCTION WITH THE 4L HIGH FLOW, RT RECOMMENDED JUST THE HIGH FLOW FOR THE NIGHT AND NO NEED FOR CPAP, NO ACUTE CHANGES, WILL RELAY TO PM RN
[2022-10-17 20:03] VITALS: BP 132/67
[2022-10-18 04:49] VITALS: BP 138/98
[2022-10-18 05:09] LABS: Hematocrit 54.2 % (33.0-51.0); Hemoglobin 17.3 g/dL (11.5-16.0); Mean Corpuscular HGB 31.7 pg (26.0-34.0); Mean Corpuscular HGB Conc 31.9 g/dL (31.5-36.5); Mean Corpuscular Volume 99 fL (80-100); Mean Platelet Volume 10.6 fL (9.1-12.4); Platelet Count 223 K/mm3 (150-400); RDW Coefficient Variation 14.2 % (11.7-14.2); RDW Standard Deviation 52.4 fL (35.1-46.3); Red Blood Cell Count 5.45 M/mm3 (3.80-5.20)
--- NOTE | 2022-10-18 05:21 | NUR ---
SHIFT SUMMARY; NO ACUTE CHANGES OVERNIGHT. THE PT IS AXO X4 AND INDEPENDENT IN THE ROOM. THE PT IS ON 4L HFNC WITH O2 SATS 93-95% T/O THE NIGHT. THE PT WAS MEDICATED ONCE FOR KNEE PAIN W/ GOOD RELIEF. THE PT DENIES ANY SOB, CHEST PAIN/PRESSURE OR N/V THIS SHIFT. CURRRENTLY THE PT IS SLEEPING IN BED WITH THE BED IN THE LOWEST POSITION AND THE CALL LIGHT AT BEDSIDE. FIRE SAFETY MAINTAINED T/O SHIFT.
[2022-10-18 05:41] LABS: Albumin, Blood 3.3 g/dL (3.4-5.0); Bilirubin, Total 0.5 mg/dL (0.1-1.0); Bun/Creatinine Ratio 27.9 (12.0-20.0); Calcium, Blood 10.7 mg/dL (8.5-10.1); Creatinine, Blood 0.93 mg/dL (0.40-1.00); Globulin, Blood 3.4 g/dL (2.2-4.0); Total Protein, Blood 6.7 g/dL (6.4-8.2)
[2022-10-18 07:56] VITALS: BP 142/84
[2022-10-18 16:22] VITALS: BP 114/48
--- NOTE | 2022-10-18 17:53 | NUR ---
SHIFT SUMMARY- PT IS A/O, PLESANT AND COOPERATIVE. SHE IS EATING AND DRINKING WELL. SHE IS AMBULATING TO THE RESTROOM. OUTPUT IS GOOD. SHE DID HER HOME O2 EVAL WILL NEED 2L O2 AT HOME PER RT. PT C/O NEW ONSET LEG PAIN. DOPPLER PREFORMED NEGATIVE FOR DVT. POSSIBLE DX TOMORROW. EDUCATED PT ON FIRE SAFTY
[2022-10-18 20:43] VITALS: BP 119/64
[2022-10-19 04:15] LABS: Hematocrit 53.1 % (33.0-51.0); Hemoglobin 17.1 g/dL (11.5-16.0); Mean Corpuscular HGB 31.8 pg (26.0-34.0); Mean Corpuscular HGB Conc 32.2 g/dL (31.5-36.5); Mean Corpuscular Volume 99 fL (80-100); Mean Platelet Volume 10.4 fL (9.1-12.4); Platelet Count 211 K/mm3 (150-400); RDW Coefficient Variation 14.2 % (11.7-14.2); RDW Standard Deviation 51.9 fL (35.1-46.3); Red Blood Cell Count 5.37 M/mm3 (3.80-5.20); White Blood Cell Count 10.97 K/mm3 (4.00-11.30)
[2022-10-19 04:35] VITALS: BP 112/84
[2022-10-19 04:50] LABS: Albumin, Blood 3.1 g/dL (3.4-5.0); Albumin/Globulin Ratio 0.9 (0.8-1.8); Bilirubin, Total 0.5 mg/dL (0.1-1.0); Calcium, Blood 10.2 mg/dL (8.5-10.1); Creatinine, Blood 1.03 mg/dL (0.40-1.00); Globulin, Blood 3.4 g/dL (2.2-4.0); Total Protein, Blood 6.5 g/dL (6.4-8.2)
--- NOTE | 2022-10-19 05:50 | NUR ---
SHIFT SUMMARY ADMITTED FOR ACUTE RESPIRATORY FAILURE. FULL CODE. 1800 ML FLUID RESTRICTION. ACHS CBG'S. INDEPENDENT IN ROOM W/FWW-BRP. ON 2 LPM O2 IN ROOM. HOME O2 EVAL NEEDED. WE ARE DIURESING HER, STEROIDS AND ANTIB RX ARE SCHEDULED. HX: COPD, CHF. BLE EDEMA. SHE DID FALL AT HOME PREVIOUS TO ADMIT. FIRE SAFETY AND IGNITION RISKS ASSESSED AND DISCUSSED WITH PATIENT.
[2022-10-19 07:29] VITALS: BP 133/78
[2022-10-19] MEDS ORDERED: INSULIN GL100 UNIT/4 SC (11:30)
[2022-10-19] MEDS ORDERED: IPRAT-ALBUT 0.5-3 ML INH (11:32)
[2022-10-19] MEDS ORDERED: DULERA 100 MCG/13 GM INH (11:33)
[2022-10-19] MEDS ORDERED: Nicoderm Cq1 EAC1 TOP (11:33)
--- NOTE | 2022-10-19 12:32 | NUR ---
DISCHARGE: PT D/C AT 1155 VIA AUTOMOBILE WITH SISTER. IV REMOVED BY FAM CEDENO. MEDS FAXED TO [facility] IN [place]. HOME EVAL COMPLETED. PT LEFT WITH PORTABLE 02.
== END 2022-10-19 11:57 | disposition home or self-care (01) | DRG 189 ==
LOC: ER 19:49 → PCU 10-14 01:05 → MEDS 10-14 01:05 → PCU 10-14 01:32 → MEDS 10-14 15:39 → ENPENDDIS 10-19 10:42 → MEDS 10-19 11:57
PROVIDERS: Family Medicine; Internal Medicine; Student in an Organized Health Care Education/Training Program; ADMIT Student in an Organized Health Care Education/Training Program
PROC: 5A09357 Assistance with Respiratory Ventilation, Less than 24 Consecutive Hours, Continuous Positive Airway Pressure (ICD-10-PCS; principal; 2022-10-14)
DX: J96.01 Acute respiratory failure with hypoxia (principal); I50.33 Acute on chronic diastolic (congestive) heart failure; J44.1 Chronic obstructive pulmonary disease with (acute) exacerbation; Z68.42 Body mass index [BMI] 45.0-49.9, adult; J96.02 Acute respiratory failure with hypercapnia; E03.9 Hypothyroidism, unspecified; E11.9 Type 2 diabetes mellitus without complications; E66.01 Morbid (severe) obesity due to excess calories; F32.A Depression, unspecified; F17.210 Nicotine dependence, cigarettes, uncomplicated; Z99.81 Dependence on supplemental oxygen; Z88.5 Allergy status to narcotic agent; Z88.8 Allergy status to other drugs, medicaments and biological substances; Z79.899 Other long term (current) drug therapy; Z79.890 Hormone replacement therapy; Z79.1 Long term (current) use of non-steroidal anti-inflammatories (NSAID); Z79.4 Long term (current) use of insulin; Z98.891 History of uterine scar from previous surgery; Z98.890 Other specified postprocedural states; Z86.79 Personal history of other diseases of the circulatory system
CPT/HCPCS: 36415; 80048; 80053; 82803; 82947; 83036; 83735; 84145; 84439; 84443; 84481; 85025; 85027; 93306; 93971; 94640; 94660; 94664; 94761; 94762; 96365; 96375; 99285-25; A9270; J0456; J1650; J1815; J1940; J2930; J7050; J7512

== ENCOUNTER 2023-04-10 15:12 | Emergency (ER) | payer OTHER ==
[~2023-04-10] VITALS: Ht 167.6 cm; Wt 110.2 kg
[~2023-04-10 15:12] MED LIST changes: +DULERA 100 MCG/13 GM INH; +FUROSEMIDE40 MG PO; +GABAPENTIN600 MG PO; +INSULIN GL100 UNIT/4 SC; +IPRAT-ALBUT 0.5-3 ML INH; +Nicoderm Cq1 EAC1 TOP
[2023-04-10] MEDS ORDERED: Robaxin750 MG PO (17:22)
[2023-04-10 17:28] VITALS: BP 158/68
== END 2023-04-10 18:09 | disposition home or self-care (01) ==
LOC: ER 15:12
DX: S39.012A Strain of muscle, fascia and tendon of lower back, initial encounter (principal); W01.0XXA Fall on same level from slipping, tripping and stumbling without subsequent striking against object, initial encounter; J44.9 Chronic obstructive pulmonary disease, unspecified; E11.9 Type 2 diabetes mellitus without complications; E03.9 Hypothyroidism, unspecified; F17.210 Nicotine dependence, cigarettes, uncomplicated; Z99.81 Dependence on supplemental oxygen; Z79.899 Other long term (current) drug therapy; Z79.4 Long term (current) use of insulin; Z79.890 Hormone replacement therapy; Z88.5 Allergy status to narcotic agent; Z88.6 Allergy status to analgesic agent
CPT/HCPCS: 72100; 96374; 96375; 99284-25; A9270; J1885; J2405

== ENCOUNTER 2024-12-22 14:35 | Inpatient (IN) | payer OTHER ==
[~2024-12-22] VITALS: Ht 175.3 cm; Wt 120.4 kg
[2024-12-22] VITALS (19 sets, daily range): BP systolic 81–116; BP diastolic 46–74
[~2024-12-22 14:35] MED LIST changes: +HUMALOG KW100 UNIT/1 SC; -INSULIN GL100 UNIT/4 SC; +INSULIN GL300 UNIT/1 SC; +MIRALAX17 GM PO; +NASAL SPRAY88 ML; -POTCHL10ER PO; +Robaxin750 MG PO; +Rocuronium Bromide 10 MG/ML 5ML Injection IV ONE
[2024-12-22 14:50] LABS: Calcium, Ionized (POC) 1.27 mmol/L (1.10-1.46); Chloride (POC) 97 mmol/L (98-108); Creatinine (POC) 0.8 mg/dL (0.6-1.0); Glucose (ISTAT POC) 167 mg/dL (70-99); Hematocrit (POC) 55.0 % (36.0-46.0); Hemoglobin (POC) 18.7 g/dL (12.0-16.0); Potassium (POC) 4.4 mmol/L (3.5-5.5); Sodium (POC) 141 mmol/L (135-148); Total CO2 (POC) 36 mmol/L (21-32)
[2024-12-22 14:57] LABS: pH Blood Venous 7.14 (7.34-7.37)
[2024-12-22 15:00] LABS: BASOPHILS ABSOLUTE AUTO 0.13 K/mm3 (0.00-0.23); BASOPHILS PERCENT AUTO 1 % (0-2); EOSINOPHILS ABSOLUTE AUTO 0.00 K/mm3 (0.00-0.68); EOSINOPHILS PERCENT AUTO 0 % (0-6); Hematocrit 50.8 % (33.0-51.0); Hemoglobin 15.1 g/dL (11.5-16.0); IMMATURE GRAN ABSOLUTE AUTO 0.33 K/mm3 (0.00-0.10); IMMATURE GRAN PERCENT AUTO 2 % (0-1); LYMPHOCYTES ABSOLUTE AUTO 1.45 K/mm3 (0.84-5.20); LYMPHOCYTES PERCENT AUTO 7 % (21-46); MONOCYTES ABSOLUTE AUTO 2.50 K/mm3 (0.16-1.47); MONOCYTES PERCENT AUTO 12 % (4-13); Mean Corpuscular HGB Conc 29.7 g/dL (31.5-36.5); Mean Corpuscular Volume 106 fL (80-100); NEUTROPHILS ABSOLUTE AUTO 15.94 K/mm3 (1.96-9.15); NEUTROPHILS PERCENT AUTO 78 % (41-73); NRBC ABSOLUTE 0.02 K/mm3 (0.00-0.02); NRBC Auto 0.1 /100 WBC (0.0-0.2); Platelet Count 201 K/mm3 (150-400); RDW Coefficient Variation 14.0 % (11.7-14.2); RDW Standard Deviation 55.4 fL (35.1-46.3)
[2024-12-22] MEDS ORDERED: CefTRIAXone Sodium 1,000 MG in NS 50 ML IV ONE (15:05)
[2024-12-22 15:19] LABS: Alanine Aminotransfer (ALT/SGP 43.0 U/L (12-78); Albumin, Blood 2.6 g/dL (3.4-5.0); Albumin/Globulin Ratio 0.5 (0.8-1.8); Anion Gap 10.0 mmol/L (3-11); Aspartate Aminotrans (AST/SGOT 43.0 U/L (12-37); Bilirubin, Total 0.6 mg/dL (0.1-1.0); Blood Urea Nitrogen 21.0 mg/dL (8-24); CO2, Blood 30.0 mmol/L (21-32); Calcium, Blood 9.5 mg/dL (8.5-10.1); Chloride, Blood 101.0 mmol/L (98-108); Creatinine, Blood 0.67 mg/dL (0.40-1.00); Globulin, Blood 5.1 g/dL (2.2-4.0); Glucose, Blood 166.0 mg/dL (70-99); Potassium, Blood 4.5 mmol/L (3.5-5.5); Sodium, Blood 136.0 mmol/L (136-145); Total Protein, Blood 7.7 g/dL (6.4-8.2)
[2024-12-22 16:00] LABS: Influenza A, PCR NEGATIVE (NEGATIVE); Influenza B, PCR NEGATIVE (NEGATIVE); Resp Syncytial Virus, PCR NEGATIVE (NEGATIVE)
[2024-12-22] MEDS ORDERED: Piperacillin/Tazobactam Sod 4.5 GM in NS 100 ML IV SCH (16:00)
[2024-12-22] MEDS ORDERED: Ipratropium/Albuterol SulF 2.5-0.5MG/3 ML Amp ONE (16:06)
[2024-12-22] MEDS ORDERED: Ipratropium/Albuterol SulF 2.5-0.5MG/3 ML Amp INH ONE (16:10)
[2024-12-22 16:33] LABS: SARS-Cov-2 (COVID-19) PCR, MMC POSITIVE (NEGATIVE)
[2024-12-22] MEDS ORDERED: Cisatracurium Besylate 100 MG in NS 50 ML IV SCH (17:15)
[2024-12-22] MEDS ORDERED: Ketamine HCL 1,000 MG in NS 100 ML IV SCH (17:45)
[2024-12-22] MEDS ORDERED: Insulin Human Lispro 100 Units/ML 3ML Syringe SC SCH (18:00)
[2024-12-22] MEDS ORDERED: Acetaminophen 160MG / 5ML 10.15 UDC PT PRN (18:05)
[2024-12-22] MEDS ORDERED: Vasopressin 20 UNITS in NS 100 ML IV SCH (18:05)
--- NOTE | 2024-12-22 18:21 | NUR ---
ASSUMPTION OF CARE/BLOCK CHARTING/SUMMARY 1635: ARRIVAL TO ICU 9. 1700: LEVO STARTED AT 5MCG/MIN AND PROPOFOL 30MCG/KG/MIN 1703: PROPOFOL 40MCG/KG/MIN AND 50MG ROCURONIUM 1720: PEEP INCREASED TO 12, FIO2 100% PT LAID FLAT TO EVALUATE FOR CENTRAL LINE PLACEMENT. PT SUPINE FOR APPROX 1 MIN TO BOOST IN BED, DESATURATED TO 70S. HEAD OF BED INCREASED AND PT TOOK SEVERAL MINUTES TO RECOVER. 1751: LEVOPHED 7MCG/MIN 1756: LEVOPHED 10MCG/MIN 1823: PROPOFOL 30MCG/KG/MIN 1830: L HUMERAL IO PLACED AND LABS DRAWN FINAL TITRATIONS: PT RECEIVING PROPOFOL 30MCG/KG/MIN, KETAMINE 0.3MG/KG/HR, LEVOPHED 10MCG/MIN, AND NIMBEX 2MCG/KG/MIN. BIS 30. TOF 0/4 (PERFORMED AFTER RAFAL ADMINISTRATION AND PRIOR TO NIMBEX INITIATION). VENT SETTINGS AC/PC RATE 26 30/14 AND 100% FIO2. RT CURRENTLY AT BEDSIDE ADJUSTING SETTINGS. SPO2 >93%. ETCO2 MID 20S. LUNGS COARSE THROUGHOUT. SINUS WITH BBB ON MONITOR, RATE 80S. LEVOPHED INFUSING TO MAINTAIN MAP >65. ORDER PLACED FOR VASOPRESSIN IF NEEDED. INFUSE VIA PERIPHERAL ACCESS PER SOFTWARE INSTALLATION ENGINEER. FAINT RADIAL PULSES, DOPPLER PEDAL PULSES. PT HAS MOTTLING TO ALL EXTREMITIES AND COOL TO TOUCH. OGT CLAMPED. ADDOMEN SOFT, BOWEL TONES ACTIVE. TEMP JOHNSON PATENT AND DRAINING ORANGE URINE TO GRAVITY. FEBRILE WITH TEMP >101. NO RESTRAINTS. PT'S FRIEND BERTRAND AT BEDSIDE AND UPDATED. DAUGHTERS PETR AND TONY UPDATED.
[2024-12-22] MEDS ORDERED: Ipratropium/Albuterol SulF 2.5-0.5MG/3 ML Amp INH SCH (18:35)
[2024-12-22] MEDS ORDERED: Albuterol 2.5 MG/3 ML VIAL INH PRN (18:40)
[2024-12-22] MEDS ORDERED: Vancomycin HCL 2,500 MG in NS 500 ML IV ONE (18:40)
[2024-12-22] MEDS ORDERED: Vancomycin (Pharmacy Consult) IV SCH (19:00)
[2024-12-22 20:55] LABS: Thyroid Stimulating Hormone 19.8 uIU/mL (0.360-4.800)
[2024-12-22] MEDS ORDERED: Liothyronine Sodium 10 MCG/ML Vial IV ONE (22:00)
[2024-12-22 23:47] LABS: pH Blood Venous 7.44 (7.34-7.37)
[2024-12-23] VITALS (61 sets, daily range): BP systolic 91–145; BP diastolic 58–88
[2024-12-23] MEDS ORDERED: Hydrogen Peroxide 1.5 % Solution MT SCH
[2024-12-23 03:46] LABS: Hematocrit 45.1 % (33.0-51.0); Hemoglobin 13.8 g/dL (11.5-16.0); Mean Corpuscular HGB Conc 30.6 g/dL (31.5-36.5); Mean Corpuscular Volume 102 fL (80-100); NRBC ABSOLUTE 0.02 K/mm3 (0.00-0.02); NRBC Auto 0.1 /100 WBC (0.0-0.2); Platelet Count 171 K/mm3 (150-400); RDW Coefficient Variation 13.6 % (11.7-14.2); RDW Standard Deviation 51.9 fL (35.1-46.3)
[2024-12-23 04:14] LABS: Magnesium, Blood 1.7 mg/dL (1.6-2.4)
[2024-12-23 04:16] LABS: Albumin, Blood 2.1 g/dL (3.4-5.0); Anion Gap 14 mmol/L (3-11); Blood Urea Nitrogen 32 mg/dL (8-24); CO2, Blood 24 mmol/L (21-32); Calcium, Blood 10.1 mg/dL (8.5-10.1); Chloride, Blood 99 mmol/L (98-108); Creatinine, Blood 0.99 mg/dL (0.40-1.00); Glucose, Blood 349 mg/dL (70-99); Phosphorus, Blood 0.4 mg/dL (2.5-4.9); Potassium, Blood 3.8 mmol/L (3.5-5.5); Sodium, Blood 133 mmol/L (136-145)
--- NOTE | 2024-12-23 05:11 | NUR ---
SHIFT SUMMARY PT INTUBATED,SEDATED, PARALYZED. NIMBEX, KETAMINE, PROPOFOL INFUSING. TOF-4, BIS 66, PUPILS REACTIVE. MAREK FULL NEURO R/T PARALYTIC. HR 70-80'S, MAPS > 65, LEVO PLACED ON SB THIS AM. VENT SETTINGS AC/PC ///45%, COMPLIANT WITH VENT T/O SHIFT. BIS MONITORING IN PLACE. OGT CLAMPED. TEMP JOHNSON DRAINING TO GRAVITY WITH MINIMAL OUTPUT. 2 RN SKIN CHECK WAS COMPLETED. MINIMAL CHG BATH WAS DONE R/T PTS ABILITY TO TOLERATING TURNS. TMAX WAS 101.7, TYLENOL GIVEN, TEMP NOW IS 99.4. PHOS REPLACEMENT ORDERED AND INFUSING. NO ACUTE EVENTS. CLA FOLLOWING.
[2024-12-23] MEDS ORDERED: Potassium Phosphate Dibasic 30 MM in Dextrose 5% 500 ML IV ONE (05:15)
[2024-12-23] MEDS ORDERED: Liothyronine Sodium 10 MCG/ML Vial IV SCH (06:00)
[2024-12-23] MEDS ORDERED: Pantoprazole Sodium 40 MG Injection IV SCH (06:00)
[2024-12-23] MEDS ORDERED: Dextran/Hypromellose/Glycerin 15 DROP/ML BTL BOTHEYES PRN (06:05)
--- NOTE | 2024-12-23 07:00 | NUR ---
ASSUMPTION OF CARE PT RECEIVING PROPOFOL 30MCG/KG/MIN, KETAMINE 03MG/KG/HR, NIMBEX 1MCG/KG/MIN. LEVOPHED ON STANDBY. K PHOS INFUSING. SHE IS ON THE VENT WITH SETTINGS AC/PC 22 14/ AND 45% FIO2. TOF 4/4, BIS 52. OGT CLAMPED. SINUS WITH BBB ON MONITOR, MAP >65. TEMP JOHNSON PATENT AND DRAINING.
[2024-12-23] MEDS ORDERED: NS 250 ML IV PRN (07:15)
[2024-12-23] MEDS ORDERED: Cetylpyridinium Chloride 1 EA MISC MT SCH (08:00)
[2024-12-23] MEDS ORDERED: Enoxaparin 40 MG/0.4 ML SYR SC SCH (09:00)
[2024-12-23 11:58] LABS: Acinetobacter baumannii DNA Not Detected copy/mL (NOT DETECT); Chlamydia pneumonia Not Detected (NOT DETECT); Enterobacter cloacae DNA Not Detected copy/mL (NOT DETECT); Escherichia coli DNA Not Detected copy/mL (NOT DETECT); Haemophilus influenzae DNA Detected Bin >=10^7 copy/mL (NOT DETECT); Klebsiella aerogenes DNA Not Detected copy/mL (NOT DETECT); Klebsiella oxytoca DNA Not Detected copy/mL (NOT DETECT); Klebsiella pneumoniae DNA Not Detected copy/mL (NOT DETECT); Moraxella catarrhalis DNA Not Detected copy/mL (NOT DETECT); Proteus sp DNA Not Detected copy/mL (NOT DETECT); Pseudomonas aeruginosa DNA Not Detected copy/mL (NOT DETECT); Serratia marcescens DNA Not Detected copy/mL (NOT DETECT); Staphylococcus aureus DNA Not Detected copy/mL (NOT DETECT); Streptococcus agalactiae DNA Not Detected copy/mL (NOT DETECT); Streptococcus pneumoniae DNA Not Detected copy/mL (NOT DETECT); Streptococcus pyogenes DNA Not Detected copy/mL (NOT DETECT)
[2024-12-23 11:59] LABS: Human Coronavirus RNA Not Detected (NOT DETECT); Human Metapneumovirus RNA Not Detected (NOT DETECT); Influenza virus A RNA Not Detected (NOT DETECT); Influenza virus B RNA Not Detected (NOT DETECT); Respiratory syncytial Vir RNA Not Detected (NOT DETECT); Rhinovirus+Enterovirus RNA Not Detected (NOT DETECT)
[2024-12-23] MEDS ORDERED: CefTRIAXone Sodium 1,000 MG in NS 100 ML IV SCH (12:43)
[2024-12-23] MEDS ORDERED: Insulin Glargine 100 Unit/ML 3 ML SYR SC SCH (14:00)
[2024-12-23] MEDS ORDERED: FLUT1DIS5 INH (15:02)
[2024-12-23] MEDS ORDERED: K-Dur20 MEQ PO (15:03)
[2024-12-23] MEDS ORDERED: FURO40 PO (15:03)
[2024-12-23] MEDS ORDERED: PROAIR RESPICL90 MCG INH (15:05)
[2024-12-23] MEDS ORDERED: IBUP600 PO (15:05)
[2024-12-23] MEDS ORDERED: FREESTYLE LIBR1 EAC7 ID (15:06)
[2024-12-23] MEDS ORDERED: FARXIGA10 MG PO (15:06)
[2024-12-23] MEDS ORDERED: GABA400 PO (15:07)
[2024-12-23] MEDS ORDERED: GABAPENTIN ER600 MG PO (15:07)
[2024-12-23] MEDS ORDERED: OZEMPIC2 MG/0.75 SC (15:09)
[2024-12-23] MEDS ORDERED: PHOSPHO-TRIN 2250 MG PO (15:10)
[2024-12-23] MEDS ORDERED: LEVSOD100 PO (15:11)
[2024-12-23] MEDS ORDERED: VITAMIN D31250 MC2 PO (15:11)
--- NOTE | 2024-12-23 15:16 | NUR ---
MED REC MED REC UPDATED FROM MEDICATION CLAIM RECORD. RECORD VASTLY DIFFERENT THAN PREVIOUS RECORDS. WILL REQUEST FAMILY TO BRING HOME MED LIST.
--- NOTE | 2024-12-23 17:55 | NUR ---
SHIFT SUMMARY PT RECEIVING PROPOFOL 30MCG/KG/MIN. RASS -4. SHE REMAINS INTUBATED WITH VENT SETTINGS AC/PC 22 14/12 AND 45% FIO2. PT HAS REMAINED SYNCHRONOUS WITH THE VENT SINCE STOPPING NIMBEX AND KETAMINE. PUPILS EQUAL AND BRISK. COUGH/GAG INTACT. FACIAL GRIMACING TO NOXIOUS STIMULI AND LIMBS WITHDRAW FROM PAINFUL STIMULI. LUNGS MOSTLY COARSE THROUGHOUT THE DAY. SINUS WITH BBB ON MONITOR, BP STABLE WITH MAP >65. STRONG RADIAL, DOPPLER PEDAL PULSES. PT REMAINS EDEMATOUS. OGT CLAMPED. TEMP JOHNSON PATENT AND DRAINING TO GRAVITY. BED IN LOW POSTION. FAMILY UPDATED EARLIER IN THE DAY VIA TELEPHONE.
[2024-12-23] MEDS ORDERED: Insulin Human Lispro 100 Units/ML 3ML Syringe SC SCH ×2 (18:00)
[2024-12-24] VITALS (45 sets, daily range): BP systolic 101–160; BP diastolic 58–109
[2024-12-24 04:09] LABS: Hematocrit 38.4 % (33.0-51.0); Hemoglobin 12.2 g/dL (11.5-16.0); Mean Corpuscular HGB Conc 31.8 g/dL (31.5-36.5); Mean Corpuscular Volume 98 fL (80-100); NRBC ABSOLUTE 0.00 K/mm3 (0.00-0.02); NRBC Auto 0.0 /100 WBC (0.0-0.2); Platelet Count 192 K/mm3 (150-400); RDW Coefficient Variation 14.4 % (11.7-14.2); RDW Standard Deviation 51.6 fL (35.1-46.3)
[2024-12-24 04:34] LABS: Anion Gap 5.0 mmol/L (3-11); Blood Urea Nitrogen 30.0 mg/dL (8-24); CO2, Blood 34.0 mmol/L (21-32); Calcium, Blood 10.2 mg/dL (8.5-10.1); Chloride, Blood 100.0 mmol/L (98-108); Creatinine, Blood 0.91 mg/dL (0.40-1.00); Glucose, Blood 246.0 mg/dL (70-99); Phosphorus, Blood 1.9 mg/dL (2.5-4.9); Potassium, Blood 3.8 mmol/L (3.5-5.5); Sodium, Blood 135.0 mmol/L (136-145)
--- NOTE | 2024-12-24 05:33 | NUR ---
SHIFT SUMMARY: PT INTUBATED AND SEDATED, RASS -4, PROPOFOL AT 30 MCG/KG/MIN AT START OF SHIFT. SEDATION DECREASED T/O THE SHIFT, RASS 0 TO +1, PT ABLE TO SHAKE HER HEAD TO YES OR NO QUESTIONS AND FOLLOW COMMANDS, SEDATION INCREASED AGAIN FOR PT COMFORT, SEE FLOWSHEET. VSS. MONITOR SHOWS SINUS RYTHM W/ BBB, RATE 60s. SPO2>90% ON VENT, SETTINGS AC PC 22 24/03 AT 45%. OGT IN PLACE, CLAMPED. TEMP JOHNSON PATENT DRAINING TO GRAVITY. WILL REPORT TO ONCOMING RN.
[2024-12-24] MEDS ORDERED: Potassium Phosphate Dibasic 30 MM in Dextrose 5% 500 ML IV ONE (05:45)
--- NOTE | 2024-12-24 08:58 | NUR ---
AM NOTE... PATIENT INTUBATED AND SEDATED. PROPOFOL GTT RUNNING PER EMAR. SEE FLOWSHEET FOR TITRATIONS. VENTILATOR SETTINGS AC/PC 45% FIO2. RASS -1 TO -2. HR SINUS IN THE 70S-80S. BP STABLE WITH MAPS >65. TEMP JOHNSON PATENT AND DRAINING YELLOW URINE TO GRAVITY. PICC TO CHADWICK.
[2024-12-24] MEDS ORDERED: Insulin Glargine 100 Unit/ML 3 ML SYR SC ONE (12:25)
[2024-12-24] MEDS ORDERED: Docusate Sodium Liquid 100 MG UDC PT PRN (13:00)
[2024-12-24] MEDS ORDERED: Protein Supplement 30 ML UD PT SCH (13:00)
[2024-12-24] MEDS ORDERED: Cetylpyridinium Chloride 1 EA MISC MT SCH (14:30)
[2024-12-24] MEDS ORDERED: Dexamethasone Sod Phos 10 MG/ML 1ML VIAL IV SCH (15:00)
[2024-12-24] MEDS ORDERED: Pantoprazole Sodium 40 MG Injection IV SCH (15:00)
[2024-12-24] MEDS ORDERED: Hydrogen Peroxide 1.5 % Solution MT SCH (16:00)
--- NOTE | 2024-12-24 17:31 | NUR ---
SHIFT SUMMARY... PATIENT INTUBATED AND SEDATED. PROPOFOL AND PRECEDEX GTTS PER EMAR. SEE FLOWSHEET FOR TITRATIONS. VENT SETTINGS AC/PC / 45% FIO2. RASS -1. NO FOCAL DEFICITS. SPO2 >94% ON VENT. HR NORMAL SINUS IN THE 60S. BP STABLE WITH MAPS >65. OGT PATENT AND RUNNING VHP @ 25ML/HR WITH GOAL OF 50ML/HR. NO BM THIS SHIFT. JOHNSON PATIENT AND DRAINING YELLOW URINE TO GRAVITY. DTR PETR AT BEDSIDE UPDATED ON PLAN OF CARE. PICC TO CHADWICK.
[2024-12-24] MEDS ORDERED: Insulin Regular 100 UNIT/ML 10ML Vial SC SCH (18:00)
[2024-12-25] VITALS (35 sets, daily range): BP systolic 110–180; BP diastolic 68–102
[2024-12-25 04:36] LABS: Anion Gap 8.0 mmol/L (3-11); Blood Urea Nitrogen 28.0 mg/dL (8-24); CO2, Blood 31.0 mmol/L (21-32); Calcium, Blood 9.8 mg/dL (8.5-10.1); Chloride, Blood 101.0 mmol/L (98-108); Creatinine, Blood 0.81 mg/dL (0.40-1.00); Glucose, Blood 286.0 mg/dL (70-99); Magnesium, Blood 2.1 mg/dL (1.6-2.4); Phosphorus, Blood 2.0 mg/dL (2.5-4.9); Potassium, Blood 3.7 mmol/L (3.5-5.5); Sodium, Blood 136.0 mmol/L (136-145); Thyroid Stimulating Hormone 5.53 uIU/mL (0.360-4.800)
[2024-12-25] MEDS ORDERED: Potassium Phosphate Dibasic 30 MM in Dextrose 5% 500 ML IV ONE (05:30)
--- NOTE | 2024-12-25 05:52 | NUR ---
SHIFT SUMMARY: PT REMAINS INTUBATED AND SEDATED. RASS 0 TO -1 AT START OF SHIFT, ABLE TO SHAKE HEAD YES OR NO TO QUESTIONS, AND FOLLOWS COMMANDS. SEDATION INCREASED FOR PT COMFORT FOR SLEEP T/O THE NIGHT. SEE FLOWSHEET FOR TITRATIONS. SPO2>90% ON VENT, SETTINGS ACPC 22 16/8 AT 40%. VSS, MONITOR SHOWS SINUS OMID TO SINUS RYTHM, RATE 50-60s. OGT PATENT INFUSING TF AT GOAL. TEMP JOHNSON PATENT DRAINING TO GRAVITY. PT OUT OF RESTRAINTS AT THIS TIME, ABLE TO REMAIN CALM AND UNDERSTANDS NOT TO PULL AT TUBE. WILL REPORT TO ONCOMING RN.
[2024-12-25 08:47] LABS: BASOPHILS ABSOLUTE AUTO 0.02 K/mm3 (0.00-0.23); BASOPHILS PERCENT AUTO 0 % (0-2); EOSINOPHILS ABSOLUTE AUTO 0.00 K/mm3 (0.00-0.68); EOSINOPHILS PERCENT AUTO 0 % (0-6); Hematocrit 37.0 % (33.0-51.0); Hemoglobin 11.9 g/dL (11.5-16.0); IMMATURE GRAN ABSOLUTE AUTO 0.21 K/mm3 (0.00-0.10); IMMATURE GRAN PERCENT AUTO 2 % (0-1); LYMPHOCYTES ABSOLUTE AUTO 2.11 K/mm3 (0.84-5.20); LYMPHOCYTES PERCENT AUTO 16 % (21-46); MONOCYTES ABSOLUTE AUTO 0.77 K/mm3 (0.16-1.47); MONOCYTES PERCENT AUTO 6 % (4-13); Mean Corpuscular HGB Conc 32.2 g/dL (31.5-36.5); Mean Corpuscular Volume 96 fL (80-100); NEUTROPHILS ABSOLUTE AUTO 10.46 K/mm3 (1.96-9.15); NEUTROPHILS PERCENT AUTO 77 % (41-73); NRBC ABSOLUTE 0.00 K/mm3 (0.00-0.02); NRBC Auto 0.0 /100 WBC (0.0-0.2); Platelet Count 191 K/mm3 (150-400); RDW Coefficient Variation 14.6 % (11.7-14.2); RDW Standard Deviation 51.5 fL (35.1-46.3)
[2024-12-25] MEDS ORDERED: Lactobacil 2-S.Thermo-Bifido 1 1 Cap PT SCH (09:00)
[2024-12-25] MEDS ORDERED: Insulin Glargine 100 Unit/ML 3 ML SYR SC SCH ×2 (09:00→21:00)
--- NOTE | 2024-12-25 09:23 | NUR ---
AM NOTE... ASSUMED CARE OF PATIENT AT APPROX 0700. PATIENT INTUBATED AND SEDATED. PROPOFOL AND PRECEDEX GTTS PER EMAR. SEE FLOWSHEET FOR TITRATIONS. VENTILATOR SETTINGS AC/PC 40% FIO2. SPO2 >94%. HR SINUS/SINUS OMID IN THE 50S-60S. BP STABLE WITH MAPS >65. PATIENT ABLE TO MAKE NEEDS KNOWN AND USE CALL LIGHT. JOHNSON IN PLACE AND DRAINING YELLOW URINE TO GRAVITY. OGT PATENT AND CLAMPED. PATIENT UPDATED ON PLAN OF CARE. CALL LIGHT NEAR.
--- NOTE | 2024-12-25 11:16 | NUR ---
EXTUBATION... PATIENT WAS EXTUBATED @1050 TO 2.5L O2. VSS, SOP2 >90%. PATIENT CHRIS SOB.
[2024-12-25] MEDS ORDERED: Levothyroxine Sodium 0.15 MG Tab PT SCH (12:55)
[2024-12-25] MEDS ORDERED: Torsemide 20 MG TAB PO SCH (13:00)
[2024-12-25] MEDS ORDERED: Insulin Regular 100 UNIT/ML 10ML Vial SC SCH (16:30)
--- NOTE | 2024-12-25 17:45 | NUR ---
SHIFT SUMMARY... PATIENT A&OX4 AND ABLE TO MAKE NEEDS KNOWN. SPO2 >94% ON 4L O2. HR SINUS IN THE 60S. BP STABLE WITH MAPS >65. PUREWICK IN PLACE DRAINING PALE YELLOW URINE TO CANISTER. PATIENT HAD MULTIPLE LOOSE STOOLS THIS SHIFT. PICC TO [facility]. FAMILY UPDATED ON PLAN OF CARE.
[2024-12-25] MEDS ORDERED: Enoxaparin 40 MG/0.4 ML SYR SC SCH (21:00)
[2024-12-25] MEDS ORDERED: Lactobacil 2-S.Thermo-Bifido 1 1 Cap PO SCH (21:00)
[2024-12-26 00:03] VITALS: BP 149/81
[2024-12-26 04:06] VITALS: BP 138/80
[2024-12-26] MEDS ORDERED: Levothyroxine Sodium 0.15 MG Tab PT SCH (06:00)
--- NOTE | 2024-12-26 06:19 | NUR ---
SHIFT SUMMARY: PT HAS BEEN A&OX4, COOPERATIVE WITH CARE AND PLEASANT WITH A GOOD SENSE OF HUMOR. PT ADVISED THAT SHE IS EXPERIENCING A LOT OF WEAKNESS IN HER ARMS AND IS HAVING DIFFICULTY WITH COORDINATIED MOVEMENTS DUE TO WEAKNESS. VITALS HAVE BEEN STABLE. NO INCREASE IN OXYGEN REQUIREMENTS, SHE CONTINUES ON NC AT BASELINE 3 LPM. BP STABLE, HR 50S-70S, AV BLOCK.
[2024-12-26 06:35] LABS: Anion Gap 5.0 mmol/L (3-11); Blood Urea Nitrogen 31.0 mg/dL (8-24); CO2, Blood 37.0 mmol/L (21-32); Calcium, Blood 10.0 mg/dL (8.5-10.1); Chloride, Blood 100.0 mmol/L (98-108); Creatinine, Blood 0.8 mg/dL (0.40-1.00); Glucose, Blood 114.0 mg/dL (70-99); Magnesium, Blood 2.5 mg/dL (1.6-2.4); Phosphorus, Blood 4.0 mg/dL (2.5-4.9); Potassium, Blood 3.7 mmol/L (3.5-5.5); Sodium, Blood 138.0 mmol/L (136-145)
[2024-12-26 08:00] VITALS: BP 138/75
[2024-12-26 08:36] LABS: BASOPHILS ABSOLUTE AUTO 0.06 K/mm3 (0.00-0.23); BASOPHILS PERCENT AUTO 0 % (0-2); EOSINOPHILS ABSOLUTE AUTO 0.02 K/mm3 (0.00-0.68); EOSINOPHILS PERCENT AUTO 0 % (0-6); Hematocrit 39.8 % (33.0-51.0); Hemoglobin 12.5 g/dL (11.5-16.0); IMMATURE GRAN ABSOLUTE AUTO 0.58 K/mm3 (0.00-0.10); IMMATURE GRAN PERCENT AUTO 4 % (0-1); LYMPHOCYTES ABSOLUTE AUTO 4.37 K/mm3 (0.84-5.20); LYMPHOCYTES PERCENT AUTO 26 % (21-46); MONOCYTES ABSOLUTE AUTO 0.89 K/mm3 (0.16-1.47); MONOCYTES PERCENT AUTO 5 % (4-13); Mean Corpuscular HGB Conc 31.4 g/dL (31.5-36.5); Mean Corpuscular Volume 100 fL (80-100); NEUTROPHILS ABSOLUTE AUTO 10.85 K/mm3 (1.96-9.15); NEUTROPHILS PERCENT AUTO 65 % (41-73); NRBC ABSOLUTE 0.00 K/mm3 (0.00-0.02); NRBC Auto 0.0 /100 WBC (0.0-0.2); Platelet Count 218 K/mm3 (150-400); RDW Coefficient Variation 14.6 % (11.7-14.2); RDW Standard Deviation 52.9 fL (35.1-46.3)
[2024-12-26] MEDS ORDERED: Protein Supplement 30 ML UD PO SCH (09:00)
[2024-12-26] MEDS ORDERED: Torsemide 20 MG TAB PO SCH (09:00)
[2024-12-26] MEDS ORDERED: Insulin Human Lispro 100 Units/ML 3ML Syringe SC SCH (11:30)
[2024-12-26 12:00] VITALS: BP 143/77
[2024-12-26 12:51] LABS: Alanine Aminotransfer (ALT/SGP 48 U/L (12-78); Albumin, Blood 2.6 g/dL (3.4-5.0); Albumin/Globulin Ratio 0.6 (0.8-1.8); Aspartate Aminotrans (AST/SGOT 39 U/L (12-37); Bilirubin, Direct <0.1 mg/dL (0.0-0.3); Bilirubin, Indirect Unable to Calculate mg/dL (0.1-0.7); Bilirubin, Total 0.3 mg/dL (0.1-1.0); Globulin, Blood 4.5 g/dL (2.2-4.0); Total Protein, Blood 7.1 g/dL (6.4-8.2)
[2024-12-26 16:00] VITALS: BP 140/72
--- NOTE | 2024-12-26 16:35 | NUR ---
CHANGE IN CODE STATUS: PATIENT INDICATED TO THIS RN THAT SHE WOULD LIKE TO TRANSITION BACK TO FULL CODE. NOTIFIED PATIENT'S PRIMARY RN. NOTIFIED DR. TRISTAN. NEW ORDER IN PLACE FOR FULL CODE.
--- NOTE | 2024-12-26 17:53 | NUR ---
SHIFT SUMMARY: PT IS ALERT AND ORIENTED X 4, ABLE TO COMMUNICATE NEEDS. PT DENIES PAIN AT THIS TIME. OXYGEN TITRATED DOWN TO 4L VIA NC, NO RESP DISTRESS NOTED. PT IN SB TO SR WITH RBBB, HR BETWEEN 55-70'S, BP STABLE. PT DENIES CP. NO BM THIS SHIFT. GOOD URINE OUTPUT NOTED, PUREWICK CHANGED AND IN PLACE. PT TOLERATING LIQUIDS AND SOLIDS W/O COMPLICATIONS, NEEDS ASSTIANCE WITH MEALS D/T WEAKNESS. PT UP IN CHAIR FOR 1.5HRS THIS SHIFT VIA LIFT. PT REPOSITIONED Q2HRS. PLAN OF CARE ONGOING, CALL LIGHT WITHIN REACH.
[2024-12-26 21:02] VITALS: BP 153/79
[2024-12-27] VITALS: BP 150/77
[2024-12-27 04:00] VITALS: BP 151/73
[2024-12-27 04:07] LABS: Hematocrit 41.3 % (33.0-51.0); Hemoglobin 12.9 g/dL (11.5-16.0); Mean Corpuscular HGB Conc 31.2 g/dL (31.5-36.5); Mean Corpuscular Volume 99 fL (80-100); NRBC ABSOLUTE 0.00 K/mm3 (0.00-0.02); NRBC Auto 0.0 /100 WBC (0.0-0.2); Platelet Count 223 K/mm3 (150-400); RDW Coefficient Variation 14.2 % (11.7-14.2); RDW Standard Deviation 52.3 fL (35.1-46.3)
[2024-12-27 04:31] LABS: Anion Gap 5.0 mmol/L (3-11); Blood Urea Nitrogen 36.0 mg/dL (8-24); CO2, Blood 40.0 mmol/L (21-32); Calcium, Blood 9.9 mg/dL (8.5-10.1); Chloride, Blood 97.0 mmol/L (98-108); Creatinine, Blood 0.76 mg/dL (0.40-1.00); Glucose, Blood 113.0 mg/dL (70-99); Magnesium, Blood 2.6 mg/dL (1.6-2.4); Phosphorus, Blood 3.4 mg/dL (2.5-4.9); Potassium, Blood 4.1 mmol/L (3.5-5.5); Sodium, Blood 138.0 mmol/L (136-145)
--- NOTE | 2024-12-27 06:24 | NUR ---
PT HAD AN UNEVENTFUL NIGHT. VSS, NO C/O SOB OR CP. GOT A LITTLE SLEEP BUT NOT MUCH SHE WANTED. PT REMAINED AT 3LNC THROUGHOUT THE NIGHT WITH SATS BETWEEN 88-93%. WORKS ON FLUTTER VALVE WHEN AWAKE. HAS MORE MOVEMENT IN HER R WRIST THIS MORNING, SHE WAS VERY HAPPY ABOUT THIS. I WAS GOING OVER HER CONTACT LIST AND VERIFYING RELATIONSHIPS, AND SHE SAID THAT PETR RUDD IS THE ONE TO MAKE ANY DECISIONS REGARDING CARE IN THE EVENT THAT THE PT CANNOT. SHE ALSO CLARIFIED THAT PETR IS HER "ADOPTED DAUGHTER" AND THAT HER BIOLOGICAL DAUGHTER, KYRIE, IS AWARE AND AGREES THAT PETR SHOULD HAVE THAT ROLE.
[2024-12-27 08:00] VITALS: BP 153/81
[2024-12-27] MEDS ORDERED: Ipratropium/Albuterol SulF 2.5-0.5MG/3 ML Amp INH SCH (11:29)
[2024-12-27 12:36] VITALS: BP 148/84
--- NOTE | 2024-12-27 12:37 | NUR ---
Call placed to Dr Nevarez for primary RN, as pt's oxygen requirements acutely changed and she now requires heated high flow with 55 LPM and 58% FiO2. SpO2 92%. Changed back to PCU status. Orders for chest xray.
--- NOTE | 2024-12-27 15:04 | NUR ---
MET WITH PT TO REVIEW CODE STATUS PER PROVIDER REQUEST. PT IS A/O X4. CALM AND PLEASANT DURING CONVERSATION. EXTENSIVE CONVERSATION RE: CPR VS DNR AND THE THREE DIFFERENT LEVELS OF MEDICAL INTERVENTIONS. PT ELECTS TO BE DNR/DNI WITH SELECTIVE MEDICAL INTERVENTIONS. PT AGREEABLE TO SNF WHEN MEDICALLY STABLE IF NEEDED. OBTAINED ORDER FROM TO CHANGE CODE STATUS TO DNR. PLAN: COMPLETE POLST AND ADVANCE DIRECTIVE PRIOR TO D/C.
[2024-12-27 16:17] VITALS: BP 127/69
--- NOTE | 2024-12-27 17:35 | NUR ---
SHIFT SUMMARY: SEE PREVIOUS NOTES. PT IS A&O X 4, ABLE TO FOLLOW COMMANDS AND COMMUNICATE NEEDS. PT DENIED PAIN T/O SHIFT. PT CONTINUES TO BE ON HHFNC WITH SETTINGS AT 55L, FIO2 BETWEEN 70-90% PT ASSISTED WITH THE USE OF FLUTTER VALVE AND IS HOURLY. PT DENIES SOB/CHEST PAIN, SPO2 BETWEEN 88-95% PT REMAINS IN SR WITH HR IN THE 70'S, BP STABLE. 1700ML OF CLEAR/YELLOW URINE OUTPUT NOTED, PUREWICK CHANGED AND PLACED TO SUCTION . NO BM THIS SHIFT, ACTIVE BOWEL TONES IN ALL QUADRANTS. PT REPOSITIONED Q2HRS. PLAN OF CARE ONGOING. PALLATIVE CARE CONSULTED, PT WISHES TO BE DNR/DNI FOR CODE STATUS.
[2024-12-27 20:00] VITALS: BP 133/85
--- NOTE | 2024-12-27 20:00 | NUR ---
ASSUMPTION OF CARE CARE OF PT ASSUMED FOLLOWING BEDSIDE SHIFT REPORT FROM DAY RN. PT IN NO APPARENT DISTRESS. ALERT AND ORIENTED, AFEBRILE AND WITHOUT PAIN. HR SINUS OMID 50-70 AND STABLE BP. PT SWITCHED FROM AIRVO TO 6L NC WITH SAT'S > 89% (GOAL FOR THIS COPD PT WILL BE 88 TO 92%). PT DENIES CHEST PAIN/PRESSURE OR SOB. RT IN ROOM TO GIVE BREATHING TREATMENT, BUT PT SAYS SHE DOES NOT WANT ANY AT NIGHT THAT MIGHT INTERFER WITH SLEEP. LUNG SOUNDS DIMINISHED IN BASES AND COARSE THROUGHOUT. PT DENIES AB PAIN, THOUGH THERE IS TENDERNESS TO PALPATION THROUGHOUT. PUREWICK IN PLACE TO SUCTION. PICC LINE IN INES- HEATH LINE DOES NOT FLUSH WELL AND WILL NOT BE USED, IF NEEDED. WILL REVIEW AND CONTINUE PLAN OF CARE.
[2024-12-28] VITALS: BP 115/71
[2024-12-28 04:00] VITALS: BP 99/52
[2024-12-28 06:11] LABS: Hematocrit 42.5 % (33.0-51.0); Hemoglobin 13.5 g/dL (11.5-16.0); Mean Corpuscular HGB Conc 31.8 g/dL (31.5-36.5); Mean Corpuscular Volume 98 fL (80-100); NRBC ABSOLUTE 0.00 K/mm3 (0.00-0.02); NRBC Auto 0.0 /100 WBC (0.0-0.2); Platelet Count 251 K/mm3 (150-400); RDW Coefficient Variation 14.0 % (11.7-14.2); RDW Standard Deviation 51.1 fL (35.1-46.3)
--- NOTE | 2024-12-28 06:11 | NUR ---
SHIFT SUMMARY PT LYING IN BED SLEEPING, AWAKES TO VOICE AND IS ALERT AND ORIENTED TO ALL. AFEBRILE. PT HAD ONE EPISODE OF BACK PAIN THAT SHE ATTRIBUTES TO GAS- SHE ASKED FOR AND RECEIVED A SMALL AMOUNT OF CARBONATED BEVERAGE WHICH RELIEVED THE SEVERE PAIN. PT IS STILL EXPERIENCING NUMBNESS AND TINGLING IN EXTREMITIES WITH RIGHT HAND WORSE THAN LEFT; WRIST BRACE TAKEN OFF DURING SLEEP AT PT'S REQUEST. MOVEMENT INTACT THOUGH. PT SINUS OMID TO SINUS ALL OF SHIFT AND BP STABLE. PT ON 6L OXIMASK; SHE STARTED SHIFT ON AIRVO AND THEN WAS QUICKLY SWITCHED TO NC BY RT. OXIMASK WAS ADDED DURING MIDDLE OF NIGHT WHEN PT GENTLY DESATURATED TO 86%. PT DENIED CHEST PAIN/PRESSURE, SOB, N/V. PT C/O AB PAIN UPON PALPATION- ALL QUADRANTS. PT DID NOT HAVE A BM. 1200 URINE OUT OF PUREWICK. PT IS SALINE LOCKED WITH PICC IN PLACE TO RIGHT UPPER ARM- PURPLE LINE WORKS BEST AND WAS USED FOR BLOOD DRAW. BEDSIDE SHIFT REPORT GIVEN TO ONCOMING DAY RN.
[2024-12-28 07:39] VITALS: BP 119/76
[2024-12-28] MEDS ORDERED: Vancomycin (Pharmacy Consult) IV SCH (08:00)
[2024-12-28] MEDS ORDERED: Vancomycin HCL 2,500 MG in NS 500 ML IV ONE (08:00)
[2024-12-28] MEDS ORDERED: Piperacillin/Tazobactam Sod 3.375 GM in NS 100 ML IV SCH (08:00)
[2024-12-28 11:20] VITALS: BP 124/71
[2024-12-28 15:37] VITALS: BP 123/67
--- NOTE | 2024-12-28 16:20 | NUR ---
SHIFT SUMMARY: PT A/O X4, ABLE TO MAKE NEEDS KNOWN. PT HAD VISITS FROM FAMILY/FRIENDS TODAY. PT WITH COMPLAINTS OF FULL BODY TEDERNESS, AND PAIN IN THE RIGHT HAND DESCRIBED "LIKE SOMEONES SQEEZING MY HAND". PT MEDICATED FOR PAIN PER EMAR AND REPOSITIONED FOR COMFORT. PT ABLE TO ROLL WELL AND ASSIST WITH REPOSITIONS. PT CURRENTLY ON 6L O2 NC, SATS >90%. PT DENIES SOB. PT NSR 60s, OTHER VSS. PT DENIES CHEST PAIN/PRESSURE. PT VOIDING VIA PUREWICK TO SUCTION, TOLERATING WELL. PT HAS NOT HAD A BM THIS SHIFT. PT RECIEVED A BEDBATH, CHG BATH, AND LINEN CHANGE THIS AFTERNOON. PT CURRENTLY WORKING WITH PHYSICAL THERAPY, CALL WITHIN REACH.
[2024-12-28 20:00] VITALS: BP 110/65
[2024-12-29] VITALS: BP 136/67
[2024-12-29 03:53] LABS: Hematocrit 43.4 % (33.0-51.0); Hemoglobin 13.7 g/dL (11.5-16.0); Mean Corpuscular HGB Conc 31.6 g/dL (31.5-36.5); Mean Corpuscular Volume 98 fL (80-100); NRBC ABSOLUTE 0.00 K/mm3 (0.00-0.02); NRBC Auto 0.0 /100 WBC (0.0-0.2); Platelet Count 268 K/mm3 (150-400); RDW Coefficient Variation 13.9 % (11.7-14.2); RDW Standard Deviation 50.4 fL (35.1-46.3)
[2024-12-29 04:00] VITALS: BP 122/72
[2024-12-29 04:08] LABS: Anion Gap 3.0 mmol/L (3-11); Blood Urea Nitrogen 38.0 mg/dL (8-24); CO2, Blood 37.0 mmol/L (21-32); Calcium, Blood 9.8 mg/dL (8.5-10.1); Chloride, Blood 100.0 mmol/L (98-108); Creatinine, Blood 0.88 mg/dL (0.40-1.00); Glucose, Blood 119.0 mg/dL (70-99); Potassium, Blood 4.1 mmol/L (3.5-5.5); Sodium, Blood 136.0 mmol/L (136-145)
[2024-12-29 07:39] VITALS: BP 128/71
[2024-12-29 11:24] VITALS: BP 131/60
[2024-12-29 15:36] VITALS: BP 138/94
--- NOTE | 2024-12-29 16:22 | NUR ---
SHIFT SUMMARY: PT REMAINS ALERT AND ORIENTED X4, ABLE TO FOLLOW COMMANDS AND MAKE NEEDS KNOWN. STRENGTH EQUAL BILATERALLY. BP STABLE. HR SR 60'S. DENIES CP/PRESSURE. PULSES PALPABLE. AFEBRILE. PT ON 4L NC MAJORITY OF THE DAY. SPO2 >90%, ON 2.5 BASELINE. LUNG SOUNDS REMAIN COARSE. PT DENIES SOB. ABD MOD. DISTENDED, BOWEL SOUNDS +. NO BM THIS SHIFT. PUREWICK REMAINS IN PLACE, CONNECTED TO LCS, APPROX 1800ML OF URINARY OUTPUT. PT ABLE TO WORK WITH PHYSICAL THERAPY THIS AFTERNOON, TOELRATED WELL. REPOS Q2 TO MAINTAIN SKIN INTEGRTIY. DENIES PAIN. BED IN LOW, CALL LIGHT IN REACH, WILL REPORT TO ONCOMING RN.
[2024-12-29 20:16] LABS: Vancomycin, Trough 21.9 ug/mL (5.0-10.0)
[2024-12-29] MEDS ORDERED: Ipratropium/Albuterol SulF 2.5-0.5MG/3 ML Amp INH SCH (22:39)
[2024-12-30] VITALS (7 sets, daily range): BP systolic 122–140; BP diastolic 53–78
[2024-12-30 06:21] LABS: Hematocrit 43.8 % (33.0-51.0); Hemoglobin 13.7 g/dL (11.5-16.0); Mean Corpuscular HGB Conc 31.3 g/dL (31.5-36.5); Mean Corpuscular Volume 100 fL (80-100); NRBC ABSOLUTE 0.00 K/mm3 (0.00-0.02); NRBC Auto 0.0 /100 WBC (0.0-0.2); Platelet Count 274 K/mm3 (150-400); RDW Coefficient Variation 13.9 % (11.7-14.2); RDW Standard Deviation 50.8 fL (35.1-46.3)
--- NOTE | 2024-12-30 06:54 | NUR ---
ASSUMPTION OF CARE PT IS ALERT, HOLDING APPROPRIATE CONVERSATION, ABLE TO MAKE NEEDS KNOWN, MOVING ALL EXTREMITIES WITH PURPOSE/ GENERALIZED WEAKNESS, OBEYS COMMANDS, CALLS APPROPRIATELY. CONTINUOUS SPO2, REPORTS SOB WITH ACTIVITY/ SLOW TO RECOVER. CONTINUOUS TELE MONITORING, SINUS 50-60 S, PULSES PRESENT T/O, BP STABLE WITH MAP GREATER THAN 65. BOWEL TONES PRESENT IN ALL 4Q, PT DENIES FEELINGS OF NAUSEA OR CONSTIPATION OR PAIN. PUREWICK IN PLACE, CONNECTED TO LOW CONTINUOUS SUCTION. BED LOWEST POSITION, CALL LIGHT IN REACH, AWAITING TO GIVE REPORT TO ONCOMING RN.
--- NOTE | 2024-12-30 18:32 | NUR ---
SHIFT SUMMARY PT IS A&O X4, COOPERATIVE WITH CARE, AND APPROPRIATELY EXPRESSES NEEDS. CURRENTLY ON 3L O2 NC AND SATTING IN 90s. PT DESATTED TO 82% WHILE TRANSFERING TO CHAIR WITH 2 ASST. RECOVERED SATURATION BACK INTO 90s IN 2 MINUTES ON 3L O2 NC W/ REST. PT HAS DENIED CHEST PAIN/PRESSURE AND SOB T/O SHIFT. SINUS OMID 50s-60s AND STABLE BPs W/ MAPS OVER 65. PUREWICK SET UP TO SUCTION AND CHANGED THIS SHIFT. PT CURRENTLY SITTING IN CHAIR. SEE NOTES FOR UPDATES.
[2024-12-31] VITALS: BP 128/58
[2024-12-31 04:00] VITALS: BP 122/67
[2024-12-31 04:20] LABS: BASOPHILS ABSOLUTE AUTO 0.04 K/mm3 (0.00-0.23); BASOPHILS PERCENT AUTO 0 % (0-2); EOSINOPHILS ABSOLUTE AUTO 0.02 K/mm3 (0.00-0.68); EOSINOPHILS PERCENT AUTO 0 % (0-6); Hematocrit 42.5 % (33.0-51.0); Hemoglobin 13.9 g/dL (11.5-16.0); IMMATURE GRAN ABSOLUTE AUTO 0.61 K/mm3 (0.00-0.10); IMMATURE GRAN PERCENT AUTO 5 % (0-1); LYMPHOCYTES ABSOLUTE AUTO 2.28 K/mm3 (0.84-5.20); LYMPHOCYTES PERCENT AUTO 18 % (21-46); MONOCYTES ABSOLUTE AUTO 0.93 K/mm3 (0.16-1.47); MONOCYTES PERCENT AUTO 7 % (4-13); Mean Corpuscular HGB Conc 32.7 g/dL (31.5-36.5); Mean Corpuscular Volume 98 fL (80-100); NEUTROPHILS ABSOLUTE AUTO 9.00 K/mm3 (1.96-9.15); NEUTROPHILS PERCENT AUTO 70 % (41-73); NRBC ABSOLUTE 0.00 K/mm3 (0.00-0.02); NRBC Auto 0.0 /100 WBC (0.0-0.2); Platelet Count 272 K/mm3 (150-400); RDW Coefficient Variation 13.7 % (11.7-14.2); RDW Standard Deviation 49.6 fL (35.1-46.3)
[2024-12-31 04:28] LABS: pH Blood Venous 7.50 (7.34-7.37)
[2024-12-31 04:37] LABS: Anion Gap 6.0 mmol/L (3-11); Blood Urea Nitrogen 40.0 mg/dL (8-24); CO2, Blood 32.0 mmol/L (21-32); Calcium, Blood 9.9 mg/dL (8.5-10.1); Chloride, Blood 100.0 mmol/L (98-108); Creatinine, Blood 0.73 mg/dL (0.40-1.00); Glucose, Blood 130.0 mg/dL (70-99); Potassium, Blood 3.9 mmol/L (3.5-5.5); Sodium, Blood 134.0 mmol/L (136-145)
--- NOTE | 2024-12-31 05:21 | NUR ---
SHIFT SUMMARY PT HAS TOLERATED SHIFT WELL WITH NO SIGNIFICANT EVENTS OR CHANGES OVERNIGHT. PT IS CALM AND COOPERATIVE AND ALERT AND ORIENTED, ABLE TO VERBALIZE NEEDS. PT REMAINS ON 3L NC THROUGH NIGHT. PT HAS HAD SOME COMPLAINTS OF KNEE PAIN WHICH PAIN MEDS IN MAR HAVE SOMEWHAT HELPED TO CONTROL. PT IS CURRENTLY RESTING COMFORTABLY IN ROOM. CALL LIGHT WITHIN REACH. WILL CONTINUE TO MONITOR UNTIL REPORT PASSED TO DAY SHIFT TEAM.
[2024-12-31 08:43] VITALS: BP 114/59
--- NOTE | 2024-12-31 12:05 | NUR ---
ASSUMPTION OF CARE ASSUMED CARE OF PATIENT AT 0700 AFTER BEDSIDE SHIFT REPORT FROM NIGHT NURSE. PATIENT WAS AWAKE IN BED, ALERT AND ORIENTED X4. PATIENT ON 3L NC O2 SATS >92%. PATIENT HR HAS BEEN SINUS OMID T/O SHIFT. SHE HAS SOME RIGHT SIDED STRENGTH DEFICITS IN UPPER EXTREMITY. PATIENT TRANSFERED TO CHAIR SHORTLY AFTER SHIFT CHANGE 2 PERSON SBA WITH FWW. PATIENT DENIES SOB AT THIS TIME. PATIENT HAS PURE WICK IN PLACE DRAINING TO SUCTION. PATIENT RESTING COMFORTABLY IN BED WITH CALL LIGHT WITH IN REACH.
[2024-12-31 15:41] VITALS: BP 117/66
--- NOTE | 2024-12-31 18:30 | NUR ---
SHIFT SUMMARY PATIENT WAS AMBULATED BACK INTO BED USING 1 PERSON FWW. PATIENT IS RESTING COMFORTABLLY WITH BED IN LOWEST POSITINO CALL LIGHT WITH IN REACH.
[2024-12-31 20:58] VITALS: BP 115/61
[2025-01-01 04:00] VITALS: BP 122/56
[2025-01-01 04:52] LABS: BASOPHILS ABSOLUTE AUTO 0.04 K/mm3 (0.00-0.23); BASOPHILS PERCENT AUTO 0 % (0-2); EOSINOPHILS ABSOLUTE AUTO 0.08 K/mm3 (0.00-0.68); EOSINOPHILS PERCENT AUTO 1 % (0-6); Hematocrit 42.3 % (33.0-51.0); Hemoglobin 13.4 g/dL (11.5-16.0); IMMATURE GRAN ABSOLUTE AUTO 0.27 K/mm3 (0.00-0.10); IMMATURE GRAN PERCENT AUTO 2 % (0-1); LYMPHOCYTES ABSOLUTE AUTO 5.12 K/mm3 (0.84-5.20); LYMPHOCYTES PERCENT AUTO 46 % (21-46); MONOCYTES ABSOLUTE AUTO 0.93 K/mm3 (0.16-1.47); MONOCYTES PERCENT AUTO 8 % (4-13); Mean Corpuscular HGB Conc 31.7 g/dL (31.5-36.5); Mean Corpuscular Volume 99 fL (80-100); NEUTROPHILS ABSOLUTE AUTO 4.77 K/mm3 (1.96-9.15); NEUTROPHILS PERCENT AUTO 43 % (41-73); NRBC ABSOLUTE 0.00 K/mm3 (0.00-0.02); NRBC Auto 0.0 /100 WBC (0.0-0.2); Platelet Count 286 K/mm3 (150-400); RDW Coefficient Variation 13.9 % (11.7-14.2); RDW Standard Deviation 50.7 fL (35.1-46.3)
[2025-01-01 05:10] LABS: Anion Gap 4.0 mmol/L (3-11); Blood Urea Nitrogen 45.0 mg/dL (8-24); CO2, Blood 35.0 mmol/L (21-32); Calcium, Blood 9.7 mg/dL (8.5-10.1); Chloride, Blood 102.0 mmol/L (98-108); Creatinine, Blood 0.96 mg/dL (0.40-1.00); Glucose, Blood 111.0 mg/dL (70-99); Potassium, Blood 3.6 mmol/L (3.5-5.5); Sodium, Blood 137.0 mmol/L (136-145)
--- NOTE | 2025-01-01 06:49 | NUR ---
SHIFT SUMMARY: PT A&OX4 CALM AND COOPERATIVE. ABLE TO FOLLOW COMMANDS AND MAKES NEEDS KNOWN. BP STABLE. SB/SR 50S-60S. PT BEGAN TO DESAT TO LOW 80S WHILE SLEEPING. INCREASED OXYGEN DEMAND FROM 3L TO 6L NC. COVID POSITIVE. Q2 TURNS. PT C/O PAIN IN BILATERAL ELBOWS. MEDICATED PER EMAR AND APPLIED HEAT. PT REPORTS HEAT PAD IMPROVED HER PAIN. 1 PERSON ASSIST W/ FWW. WICKING SYSTEM IN PLACE. TOLERATING CONSISTENT CARB DIET. PLAN IS TO DISCHARGE TO SNF 01/02. BED IS LOW AND LOCKED. CALL LIGHT WITHIN REACH. CONTINUE WITH CURRENT PLAN OF CARE.
[2025-01-01 09:06] VITALS: BP 116/72
[2025-01-01] MEDS ORDERED: PROAIR DIGIHAL90 MCG INH (10:03)
[2025-01-01] MEDS ORDERED: FLUTICASONE-SA1 EAC9 INH (10:04)
[2025-01-01] MEDS ORDERED: GABAPENTIN ER600 MG PO (10:09)
--- NOTE | 2025-01-01 15:06 | NUR ---
ASSUMPTION OF CARE ASSUMED CARE OF PATIENT AT 0700. ON 3L NC O2 SATS>90%. SBP >100. ALERT AND ORIENTED X4. RESTING IN BED IN LOWEST POSITION CALL LIGHT WITH IN REACH. WILL REVIEW CARE PLAN FOR DAY.
[2025-01-01 17:55] VITALS: BP 118/65
--- NOTE | 2025-01-01 18:21 | NUR ---
SHIFT SUMMARY PATIENT UP IN CHAIR. ON 3L NC O2 SATS >90. SBP STABLE, BILATERAL ELBOW PAIN, CALLED PROVIDER. PT/OT TODAY. MEDICATED PER EMAR. PATIENT BACK TO BED IN LOWEST POSITION, RESTING COMFORTABLY, CALL LIGHT WITH IN REACH. PURE WICK IN PLACE DRAINING TO SUCTION. WILL REPORT TO [facility] PROFESSOR NURSE.
[2025-01-01 20:59] VITALS: BP 115/61
[2025-01-02 03:37] VITALS: BP 122/62
--- NOTE | 2025-01-02 04:22 | NUR ---
Assumed care of pt at 1900. Pt AxOx4 and able to use call light appropriately. Pt continues to complain of pain in SHYAM elbows. Medicated cream given per EMAR. Purewick on and intact. Pt remains on 4L NC. VSS. Bed in lowest position and call light within reach.
[2025-01-02 08:25] VITALS: BP 114/63
[2025-01-02] MEDS ORDERED: Torsemide 20 MG TAB PO SCH (09:00)
[2025-01-02] MEDS ORDERED: TORSE20 PO (12:12)
[2025-01-02] MEDS ORDERED: JARDIANCE10 MG PO (12:12)
[2025-01-02] MEDS ORDERED: OLUMIANT2 MG PO (12:13)
[2025-01-02] MEDS ORDERED: BASAGLAR K100 UNIT/6 SC (12:13)
[2025-01-02] MEDS ORDERED: LIOT5 PO (12:16)
--- NOTE | 2025-01-02 13:21 | NUR ---
PT LEFT VIA W/C AT APPROX 1300, GAVE REPORT VIA PHONE TO [facility] NURSE TAKING OVER CARE. ALL BELONGINGS WITH PATIENT.
--- NOTE | 2025-01-02 16:41 | NUR ---
MET WITH PATIENT THIS MORNING. PATIENT REQUESTED ASSISTANCE FILLING OUT POLST AND AD. REVIEWED PAPERWORK WITH PATIENT. ON HER POLST SHE REQUESTED DNR AND LIMITED INTERVENTIONS. SIGNED BY PROVIDER AND SENT TO POLST REGISTRY, MEDICAL RECORDS. ORG SENT WITH PT. ASSISTED HER IN FILLING OUT AND ADVANCED DIRECTIVE. CONTACTED NOTRY TO SIGN.
--- NOTE | 2025-01-03 00:38 | NUR ---
INFORMATION REVIEWED TO ANSWER DONOR REFERRAL QUESTIONS ABOUT THE PATIENT'S DISCHARGE.
== END 2025-01-02 13:10 | DRG 208 ==
LOC: ER 14:35 → ICUE 15:41 → PCU 15:41 → ICUE 16:52 → PCU 12-30 06:10
PROVIDERS: Emergency Medicine; Internal Medicine; Internal Medicine Critical Care Medicine; Student in an Organized Health Care Education/Training Program; ADMIT Internal Medicine
PROC: 5A1945Z Respiratory Ventilation, 24-96 Consecutive Hours (ICD-10-PCS; principal; 2024-12-22)
PROC: 0BH17EZ Insertion of Endotracheal Airway into Trachea, Via Natural or Artificial Opening (ICD-10-PCS; 2024-12-22)
PROC: 3E03329 Introduction of Other Anti-infective into Peripheral Vein, Percutaneous Approach (ICD-10-PCS; 2024-12-22)
PROC: 3E033XZ Introduction of Vasopressor into Peripheral Vein, Percutaneous Approach (ICD-10-PCS; 2024-12-22)
PROC: 8E0ZXY6 Isolation (ICD-10-PCS; 2024-12-22)
PROC: 0T9B70Z Drainage of Bladder with Drainage Device, Via Natural or Artificial Opening (ICD-10-PCS; 2024-12-22)
PROC: 02HV33Z Insertion of Infusion Device into Superior Vena Cava, Percutaneous Approach (ICD-10-PCS; 2024-12-23)
PROC: 3E0DX3Z Introduction of Anti-inflammatory into Mouth and Pharynx, External Approach (ICD-10-PCS; 2024-12-24)
PROC: XW0DXM6 Introduction of Baricitinib into Mouth and Pharynx, External Approach, New Technology Group 6 (ICD-10-PCS; 2024-12-24)
DX: U07.1 COVID-19 (principal); J12.82 Pneumonia due to coronavirus disease 2019; J96.22 Acute and chronic respiratory failure with hypercapnia; J96.21 Acute and chronic respiratory failure with hypoxia; J14 Pneumonia due to Hemophilus influenzae; J44.0 Chronic obstructive pulmonary disease with (acute) lower respiratory infection; I50.32 Chronic diastolic (congestive) heart failure; Z68.41 Body mass index [BMI] 40.0-44.9, adult; E03.9 Hypothyroidism, unspecified; G47.33 Obstructive sleep apnea (adult) (pediatric); E11.9 Type 2 diabetes mellitus without complications; I11.0 Hypertensive heart disease with heart failure; E66.01 Morbid (severe) obesity due to excess calories; I95.9 Hypotension, unspecified; Z79.890 Hormone replacement therapy; Z99.89 Dependence on other enabling machines and devices; Z99.81 Dependence on supplemental oxygen; Z88.8 Allergy status to other drugs, medicaments and biological substances; Z88.5 Allergy status to narcotic agent; Z79.4 Long term (current) use of insulin; Z87.891 Personal history of nicotine dependence; Z79.1 Long term (current) use of non-steroidal anti-inflammatories (NSAID)
CPT/HCPCS: 0528U; 31500; 36415; 36569; 51702; 71045; 80047; 80048; 80053; 80069; 80076; 80202; 82533; 82803; 82947; 83036; 83605; 83735; 83880; 84100; 84145; 84436; 84439; 84443; 84481; 84484; 85014; 85025; 85027; 87040; 87070; 87205; 87637; 93005; 93010; 94002; 94003; 94640; 94664; 94762; 97110; 97112; 97116; 97161; 97166; 97530; 97535; 99291-25; 99292; A9270; C1751; C9399; J0696; J1100; J1650; J1720; J1815; J2470; J2543; J2704; J2919; J3373; J7040; J7050; J7060; J7120

== ENCOUNTER → 2025-02-15 | Outpatient (CLI) | payer OTHER ==
[~2025-02-15] MED LIST changes: +BASAGLAR K100 UNIT/6 SC; +FARXIGA10 MG PO; +FLUT1DIS5 INH; +FLUTICASONE-SA1 EAC9 INH; +FREESTYLE LIBR1 EAC7 ID; +GABA400 PO; +GABAPENTIN ER600 MG PO; +JARDIANCE10 MG PO; +K-Dur20 MEQ PO; +LEVSOD100 PO; +OLUMIANT2 MG PO; +OZEMPIC2 MG/0.75 SC; +PHOSPHO-TRIN 2250 MG PO; +PROAIR DIGIHAL90 MCG INH; +PROAIR RESPICL90 MCG INH; -Rocuronium Bromide 10 MG/ML 5ML Injection IV ONE; +TORSE20 PO; +VITAMIN D31250 MC2 PO
[2025-02-15 20:33] LABS: Bilirubin, Urine Neg (Neg); Color, Urine Yellow (P-Yellow); Glucose Qualitative, Urine Neg (Neg); Ketones, Urine Neg (Neg); Leukocyte Esterase, Urine 1+ (Neg); Protein, Urine Neg (Neg); Specific Gravity, Urine 1.025 (1.003-1.022); Urobilinogen, Urine NORM (Normal)
== END | disposition home or self-care (01) ==
LOC: LAB SHORT 20:26 → LAB 20:26
PROVIDERS: Family Medicine
DX: E78.5 Hyperlipidemia, unspecified (principal); R29.6 Repeated falls
CPT/HCPCS: 81001; 87086

== ENCOUNTER → 2025-03-19 | Outpatient (CLI) | payer OTHER ==
[2025-03-19 20:01] LABS: Alanine Aminotransfer (ALT/SGP 33 U/L (12-78); Albumin, Blood 3.4 g/dL (3.4-5.0); Albumin/Globulin Ratio 0.9 (0.8-1.8); Anion Gap 4 mmol/L (3-11); Aspartate Aminotrans (AST/SGOT 29 U/L (12-37); Bilirubin, Direct <0.1 mg/dL (0.0-0.3); Bilirubin, Indirect Unable to Calculate mg/dL (0.1-0.7); Bilirubin, Total 0.3 mg/dL (0.1-1.0); Blood Urea Nitrogen 13 mg/dL (8-24); CO2, Blood 38 mmol/L (21-32); Calcium, Blood 11.3 mg/dL (8.5-10.1); Chloride, Blood 100 mmol/L (98-108); Creatinine, Blood 0.68 mg/dL (0.40-1.00); Globulin, Blood 3.9 g/dL (2.2-4.0); Glucose, Blood 120 mg/dL (70-99); Phosphorus, Blood 2.3 mg/dL (2.5-4.9); Potassium, Blood 4.5 mmol/L (3.5-5.5); Sodium, Blood 137 mmol/L (136-145); Total Protein, Blood 7.3 g/dL (6.4-8.2)
== END ==
LOC: LAB SHORT 17:36 → LAB 17:36
PROVIDERS: Internal Medicine Endocrinology, Diabetes & Metabolism
DX: E11.65 Type 2 diabetes mellitus with hyperglycemia (principal); E89.0 Postprocedural hypothyroidism; E21.0 Primary hyperparathyroidism; E55.9 Vitamin D deficiency, unspecified
CPT/HCPCS: 80053; 82248; 83036; 84100